=== PATIENT | female | born 1930 | race Asian ===

== ENCOUNTER 2017-01-22 13:18 | Inpatient (IN) | payer MEDICARE ==
[~2017-01-22] VITALS: Ht 149.9 cm; Wt 49.2 kg
--- NOTE | 2017-01-22 13:23 | ERPDOC ---
Departure Disposition Decision Date: January 22, 2017 Disposition Decision Time: 14:59 (ILSA MAXWELL APRN) Disposition: 66 TO [facility] Impression Impression (ILSA MAXWELL APRN) Impression: Primary Impression: Suicidal ideations Condition: Stable Seen By: Mid-level only (ILSA MAXWELL APRN) Problems/Meds/Labs Reviewed?: Yes Medications reviewed and manag: Yes (ILSA MAXWELL APRN) Follow up care ordered?: Yes Mental Status: Alert, Occasionally Confused, Confused (ILSA MAXWELL APRN) HPI - Abdominal Pain General Stated Complaint: GENERATIONS Time Seen by Provider: 13:20 Source: patient, old records, other (staff member from nursing facility ) History/Exam Limitations: clinical condition, dementia (ILSA MAXWELL APRN) Time Seen by Provider: 13:24 (GRAYSON SARAH MD) HPI - Abdominal Pain Initial Comments Patient presents from detention in [place] accompanied by staff. Apparently patient was admitted to the facility yesterday after being kicked out of of a facility in [facility] secondary to behavior issues. The patient today apparently made a stabbing motions with her hands which was perceived by the staff as suicidal ideations. Patient also apparently threatened to jump out of the car en route to [facility]. Upon exam, patient is confused to place and time and not cooperative with questions. She denies pain , specifically denies chest pain or SOA. Staff reports that patient is a flight risk, threatening to leave the facility and has made attempts to do that since arrival to the facility yesterday. Occurred At: other (nursing facility ) Duration: 12-24 hrs Associated Symptoms: denies symptoms (ILSA MAXWELL APRN) Allergies: Coded Allergies: Penicillins (Verified Allergy, Unknown, 01/22/17) Sulfa (Sulfonamide Antibiotics) (Verified Allergy, Unknown, 01/22/17) doxycycline (Verified Allergy, Unknown, 01/22/17) iodine (Verified Allergy, Unknown, 01/22/17) Past History Social History Smoking Status: Smoker,current status unk Housing: detention (ILSA MAXWELL APRN) Review of Systems Unable to Obtain ROS Due to: clinical condition, dementia Comments ROS limited due to patients dementia/uncooperativeness (ILSA MAXWELL APRN) Physical Exam General General Nourishment: well nourished, well developed, appears stated age, no acute distress, adult (ILSA MAXWELL APRN) Vitals and Pain First Documented Vital Signs Date Time Temp Pulse Resp B/P Pulse Ox O2 Delivery O2 Flow Rate FiO2 01/22/17 13:18 98.4 75 19 158/65 97 Nasal Cannula 2.00 (GRAYSON SARAH MD) Vitals and Pain Weight: Kilograms: Height (feet): Height (inches): Triage Pain Scale: (ILSA MAXWELL APRN) Normal Exams: Head: Normocephalic w/o trauma Eyes: Pupils are PERRLA w/ EOMI, No scleral icterus, irritation, or foreign bodies noted ENMT: No facial trauma, nasal exudates, pharyngeal erythema, or exudates are noted Dental: No fractured, loose, or missing teeth noted Neck: Full range of motion, without adenopathy, JVD, bruits or thyromegaly CV: Regular rate and rhythm, without murmur or gallop, Pulses 2+ all extremities, capillary refill, <2 seconds all ext., no pedal edema noted Abdomen: Bowel sounds positive, soft, non-tender, non-distended, no hepatosplenomegaly, masses or bruits noted Lymphatic: No lymphadenopathy, or lymphedema noted Musculoskeletal: No tenderness, or deformity noted, good range of motion, all extremities Integumentary: No rashes, hives, or bruising noted, hair and nails, without abnormality Neurologic: Patient is alert, cranial nerves, motor/sensory/cerebellar, exams w /o gross deficits (ILSA MAXWELL APRN) Neurologic (brief) Neurological Brief: FOUND: CN w/o gross def to obs (ILSA MAXWELL APRN) Psychiatric (brief) Psychiatric Brief: FOUND: alert, other, NOT FOUND: normal affect, oriented ( ILSA MAXWELL APRN) Differential Diagnoses Considering: Other (dementia, electrolyte imbalance, fever, sepsis, pneumonia, depression, ) (ILSA MAXWELL APRN) Progress Results/Orders Orders Procedure Category Date Status Time Trolamine Salicylate PHA 01/25/17 In Process (Aspercreme) 09:45 (GRAYSON SARAH MD) Progress Progress CT scan is unremarkable for acute change; no evidence of acute infection or sepsis which would explain patients behaviors; Patient is cleared for admission to [facility]. (ILSA MAXWELL APRN) EKG EKG : Rate: 60-100 Rhythm: sinus [place]: normal QRS: normal Intervals: normal ST/T: normal Interpreted by: signing physician EKG Comments minimal ST depressjion 0.05 mV (ILSA MAXWELL APRN) EKG : Rate: 60-100 Rhythm: sinus [place]: normal QRS: normal Intervals: normal ST/T: non-specific changes Interpreted by: signing physician (GRAYSON SARAH MD) ILSA MAXWELL APRN January 22, 2017 13:23 GRAYSON SARAH MD January 25, 2017 20:58 Hemoglobin 11.6GM/DL Hematocrit 36.8% Mean Corpuscular Volume 98.7UM3 Mean Corpuscular Hemoglobin 31.1UUG Mean Corpuscular Hemoglobin Concent 31.5GM/DL RDW Standard Deviation 41.2FL Platelet Count 185T/MM3 Mean Platelet Volume 9.8UM3 Immature Granulocyte % (Auto) 0.1% Neutrophils (%) (Auto) 66.4% Lymphocytes (%) (Auto) 22.6% Monocytes (%) (Auto) 5.7% Eosinophils (%) (Auto) 4.7% Basophils (%) (Auto) 0.5% Absolute Immature Granulocyte (auto 0.01T/MM3 Absolute Neutrophils (auto) 5.9T/MM3 Absolute Lymphocytes (auto) 2.0T/MM3 Absolute Monocytes (auto) 0.5T/MM3 Absolute Eosinophils (auto) 0.4T/MM3 Absolute Basophils (auto) 0.0T/MM3 Turbidity < 20 Sodium Level 146MEQ/L Potassium Level 3.9MEQ/L Chloride Level 102MEQ/L Carbon Dioxide Level 33MEQ/L Anion Gap 11MEQ/L Blood Urea Nitrogen 22.0MG/DL Creatinine 0.9MG/DL Glomerular Filtration Rate Calc 59 BUN/Creatinine Ratio 24RATIO Glucose Level 139MG/DL Calculated Osmolality 286MOSM/KG Calcium Level 8.7MG/DL Icterus Index < 2 Thyroid Stimulating Hormone (TSH) 3.30MIU/L Chemistry Specimen Hemolysis < 15 Salicylates Level < 1.0MG/DL Acetaminophen Level < 10UG/ML Alcohol, Quantitative <10MG/DL Urine Collection Type Voided-not cc-midstr Urine Color Yellow Urine Turbidity Clear Urine pH 5.5 Urine Specific [place] 1.015 Urine Protein Negative Urine Glucose (UA) Negative Urine Ketones Negative Urine Blood Negative Urine Nitrite Negative Urine Bilirubin Negative Urine Urobilinogen 0.2EU/DL Urine Leukocyte Esterase 2+ Urine RBC None seen/HPF Urine WBC 5-10/HPF Urine Squamous Epithelial Cells 10-20 Urine Bacteria Trace Urine Culture Indicated Cult not indicated Urine Opiates Screen NegativeNG/ML Urine Oxycodone Screen NegativeNG/ML Urine Methadone Screen NegativeNG/ML Urine Propoxyphene Screen NegativeNG/ML Urine Barbiturates Screen NegativeNG/ML Urine Tricyclic Antidepressants NegativeNG/ML Urine Phencyclidine Screen NegativeNG/ML Urine Amphetamines Screen NegativeNG/ML Urine Methamphetamines Screen NegativeNG/ML Urine Benzodiazepines Screen NegativeNG/ML Urine Cocaine Screen NegativeNG/ML Urine Cannabinoids Screen NegativeNG/ML Lab Scanned Report REFERENCE [id number] Progress Progress CT scan is unremarkable for acute change; no evidence of acute infection or sepsis which would explain patients behaviors; Patient is cleared for admission to [facility]. EKG EKG : Rate: 60-100 Rhythm: sinus [place]: normal QRS: normal Intervals: normal ST/T: normal Interpreted by: signing physician EKG Comments minimal ST depressjion 0.05 ILSA Bautista APRN January 22, 2017 13:23
[2017-01-22] MEDS ORDERED: VITAMIN D PO (13:45)
[2017-01-22] MEDS ORDERED: DONE10TA PO (13:45)
[2017-01-22] MEDS ORDERED: POLY17PO6 PO (13:45)
[2017-01-22] MEDS ORDERED: RALO60TA PO (13:45)
[2017-01-22] MEDS ORDERED: SENN-6 PO (13:45)
[2017-01-22] MEDS ORDERED: FLUT1DIS3 ORAL INH (13:45)
[2017-01-22] MEDS ORDERED: LEVO50TA4 PO (13:45)
[2017-01-22] MEDS ORDERED: SERT25TA PO (13:45)
--- NOTE | 2017-01-22 13:56 | NUR ---
LAB LAB AT BEDSIDE FOR BLOOD DRAW
--- NOTE | 2017-01-22 14:02 | NUR ---
ACTIVITY PATIENT AMBULATORY TO RESTROOM, TOLERATES ACTIVITY WELL.
[2017-01-22 14:15] LABS: BASOPHILS % (AUTO) 0.5 % (0-2); EOSINOPHILS # (AUTO) 0.4 T/MM3 (0-0.5); EOSINOPHILS % (AUTO) 4.7 % (0-4); HCT - HEMATOCRIT 36.8 % (36-46); HGB - HEMOGLOBIN 11.6 GM/DL (12-16); IMMATURE GRANULOCYTE # (AUTO) 0.01 T/MM3 (0.00-0.03); IMMATURE GRANULOCYTE % (AUTO) 0.1 % (0.0-0.5); LYMPHOCYTES % (AUTO) 22.6 % (23-45); MEAN CORPUSCULAR HGB 31.1 UUG (26-34); MEAN CORPUSCULAR HGB CONC(MCHC 31.5 GM/DL (31-37); MEAN CORPUSCULAR VOLUME 98.7 UM3 (80-100); MEAN PLATELET VOLUME 9.8 UM3 (9.4-12.4); MONOCYTES # (AUTO) 0.5 T/MM3 (0-0.8); MONOCYTES % (AUTO) 5.7 % (0-9.0); NEUTROPHILS #(AUTO)-ABSOLUTE 5.9 T/MM3 (1.8-7.7); NEUTROPHILS % (AUTO) 66.4 % (33-66); RED BLOOD COUNT 3.73 M/MM3 (4.00-5.20); WBC - WHITE BLOOD COUNT 8.8 T/MM3 (4.5-11.0)
[2017-01-22 14:17] LABS: BLOOD, URINE NEGATIVE (NEGATIVE); COLOR,URINE YELLOW (YELLOW); LEUKOCYTE ESTERASE ,URINE 2+ (NEGATIVE); NITRITE,URINE NEGATIVE (NEGATIVE); UROBILINOGEN,URINE 0.2 EU/DL (NORMAL)
--- NOTE | 2017-01-22 14:18 | NUR ---
XRAY PATIENT TO RADIOLOGY PER CART, STABLE.
[2017-01-22 14:24] LABS: ANION GAP 11 MEQ/L (5-15); BUN/CREATININE RATIO 24 RATIO (6-26); CALCIUM 8.7 MG/DL (8.4-10.2); CHLORIDE 102 MEQ/L (98-107); CO2 - CARBON DIOXIDE 33 MEQ/L (22-30); CREATININE 0.9 MG/DL (0.7-1.2); GLOMERULAR FILTRATION RATE 59; GLUCOSE 139 MG/DL (65-110); POTASSIUM 3.9 MEQ/L (3.6-5); SODIUM 146 MEQ/L (134-144)
[2017-01-22 14:25] LABS: AMPHETAMINE SCREEN,URINE NEGATIVE; BARBITURATE SCREEN,URINE NEGATIVE; BENZODIAZEPINES SCREEN,URINE NEGATIVE; CANNABINOID SCREEN,URINE NEGATIVE; COCAINE SCREEN,URINE NEGATIVE; METHADONE SCREEN, URINE NEGATIVE; METHAMPHETAMINE SCREEN, URINE NEGATIVE; OPIATE SCREEN,URINE NEGATIVE; PHENCYCLIDINE SCREEN,URINE NEGATIVE; TRICYCLIC ANTIDEPRESSANT,URINE NEGATIVE
[2017-01-22 14:27] LABS: ACETAMINOPHEN < 10 UG/ML (10-30); ETHANOL <10 MG/DL (<10); SALICYLATE < 1.0 MG/DL (2-20)
[2017-01-22 14:28] LABS: BACTERIA,URINE TRACE (NEGATIVE); RBC,URINE NONE SEEN /HPF (0-3)
--- NOTE | 2017-01-22 14:28 | NUR ---
RETURN PATIENT BACK FROM RADIOLOGY PER CART.
--- NOTE | 2017-01-22 14:31 | DI ---
Indication: ITS.REASON: behavior change; PROCEDURE: CT HEAD W/O CONTRAST: Encounter: Initial Comparison: None Technique: Axial CT images through the head were performed without contrast. Iterative Reconstruction dose reducing technique was utilized. FINDINGS: Moderate generalized atrophy. The ventricles are dilated but proportional to atrophy. There are numerous areas of low attenuation in the white matter which most likely represent changes from chronic microvascular ischemia. The brainstem, cerebellum, and cerebral hemispheres otherwise have a normal morphology and CT attenuation. There is no evidence of midline displacement. No hemorrhage, signs of acute territorial stroke, mass effect, mass lesions, or edema is evident. The visualized portions of the skull base, midface, and calvarium demonstrate no abnormality. The paranasal sinuses are well aerated and free of significant disease. The tympanic and mastoid cavities appear normal. IMPRESSION: No acute intracranial abnormality or hemorrhage. .
--- NOTE | 2017-01-22 14:43 | DI ---
Indication: ITS.REASON: wheezing ; states recent pneumonia PROCEDURE: CHEST 1 VIEW: Encounter: Initial Comparison: None Findings: Increased markings in both lung bases, left greater than right. Senescent changes and possible COPD. No pneumothorax or definite pleural effusion. Areas of bronchiectasis and bronchial wall thickening in the lower lobes. Cardiac silhouette is mildly enlarged. Mediastinal contours and pulmonary vascularity appear normal. Impression: Abnormal appearance of the lower lobes could represent acute pneumonia or aspiration or be related to a chronic process such as COPD or chronic aspiration. .
--- NOTE | 2017-01-22 15:14 | NUR ---
TRANSPORT PER WC ACCOMPANIED BY [facility]
--- OUTSIDE RECORDS SUMMARY | 2017-01-22 15:22 | XMS REPORT | Referral Summary ---
Author Organization Unknown Address Unknown Phone Unavailable Care Team Providers Care Master Lay Out Specialist Name Role Phone Aragon, L Primary Care Physician [phone] Encounter VC Date(s): 12/26/14 - 01/06/[id number] [place] [address] Discharge Diagnosis: Bacteremia Discharge Disposition: Home or Self Care Attending Physician: Chava Cooley MD Admitting Physician: Oneil Giordano MD Vital Signs Most recent to 1 oldest [Reference Range]: Temperature Oral 37.2 degC [35.8-37.3 degC] (01/06/15 8:00 AM) Temperature Temporal 36.3 degC Artery [36.3-37.8 (01/01/15 12:00 PM) degC] Peripheral Pulse 78 bpm Rate [60-100 bpm] (01/06/15 8:00 AM) Heart Rate Monitored 82 bpm [60-100 bpm] (01/06/15 9:00 AM) Respiratory Rate 18 br/min [14-20 br/min] (01/06/15 8:16 AM) Blood Pressure 116/68 mmHg [90-140/60-90 mmHg] (01/06/15 8:00 AM) Most recent to 1 oldest [Reference Range]: SpO2 95 % (01/06/15 8:11 AM) Problem List Condition Effective Dates Status Health Status Informant Hypothyroidism Active patient (acquired)(Confirmed ) Acute Active pain(Confirmed) At risk for Resolved falls(Confirmed)1 At risk for Resolved infection(Confirmed) 2 At risk for Resolved injury(Confirmed)3 At risk of pressure Active sore(Confirmed) Constipation(Confirm Resolved patient ed) Methicillin Active resistant Staphylococcus aureus(Confirmed)4 Pneumonia(Confirmed) Active patient Emphysema Active patient lung(Confirmed) Tissue perfusion Active alteration(Confirmed )5 Tobacco Active patient user(Confirmed) 1This problem was added by Discern Expert. 2Problem added automatically by system based on initiation of At Risk for Infection in Nutrition Plan of Care 3Problem added automatically by system based on initiation of Risk for Injury Plan of Care 4Blood from NOT FOUND collected 12/30/14 7:45:00 CDT 5Problem added automatically by system based on initiation of Tissue Perfusion Cerebral Plan of Care Allergies, Adverse Reactions, Alerts Substance Reaction Severity Status doxycycline Adverse Reaction Active iodine Eczema (rash) Active penicillin Eczema (rash) Active Medications Advair Diskus 250 mcg-50 mcg inhalation powder 1 puffs, Inhalation, BID, 0 Refill(s) Start Date: 12/26/14 Status: Ordered levothyroxine 75 mcg, Oral, Daily, 0 Refill(s) Start Date: 12/26/14 Status: Ordered raloxifene 60 mg, Oral, Daily, 0 Refill(s) Start Date: 12/26/14 Status: Ordered Senokot S 50 mg-8.6 mg oral tablet 1 tabs, Oral, Daily, Constipation, # 30 tabs, 0 Refill(s), Pharmacy: [facility] #[id number] Start Date: 01/06/15 Status: Ordered simethicone 80 mg oral tablet, chewable 1 tabs, Oral, q6hr (scheduled), Abdominal Cramping, # 36 tabs, 0 Refill(s), Pharmacy: [facility] #[id number], 1 tabs Oral q6hr (scheduled),PRN:Abdominal Cramping Start Date: 01/06/15 Status: Ordered Results Blood Gases Most recent to 1 oldest [Reference Range]: pH [7.35-7.45] 7.41 (12/26/14 8:00 PM) pCO2 Art [35-45 45 mmHg mmHg] (12/26/14 8:00 PM) Arterial PO2 [80-100 60 mmHg mmHg] *LOW* (12/26/14 8:00 PM) Bicarbonate [22-26 28 mEq/L mEq/L] *HI* (12/26/14 8:00 PM) Base Excess Art 3 [0-2] *HI* (12/26/14 8:00 PM) SaO2 Art [90.0-97.0 91.1 % %] (12/26/14 8:00 PM) LPM Art 6.0 L/min (12/26/14 8:00 PM) O2 Panel Home Tank (12/26/14 8:00 PM) Vent Mode Nasal Cannula (12/26/14 8:00 PM) Spec Site Radial-L (12/26/14 8:00 PM) Hematology Most recent to 1 oldest [Reference Range]: WBC [4.8-10.8 K/uL] 7.7 K/uL (01/05/15 5:25 AM) RBC [4.00-5.20 M/uL] 3.38 M/uL *LOW* (01/05/15 5:25 AM) Hgb [12.0-16.0 9.7 gm/dL gm/dL] *LOW* (01/05/15:25 AM) Hct [37.0-47.0 %] 32.0 % *LOW* (01/05/15:25 AM) MCV [82.0-99.0 fL] 94.7 fL (01/05/15 5:25 AM) MCH [27.0-32.0 pg] 28.7 pg (01/05/15 5:25 AM) MCHC [32.0-36.0 30.3 gm/dL gm/dL] *LOW* (01/05/15 5:25 AM) RDW [11.5-14.5 %] 11.9 % (01/05/15 5:25 AM) Platelet [150-400 261 K/uL K/uL] (01/05/15 5:25 AM) MPV [9.4-12.4 fL] 9.2 fL *LOW* (01/05/15 5:25 AM) Immature 0.5 % Granulocytes (01/05/15 5:25 AM) [0.0-1.0 %] Neutrophils [51-75 69 % %] (01/05/15 5:25 AM) Band Man [0-8 %] 3 % (01/02/15 6:51 AM) Lymphocytes [20-46 21 % %] (01/05/15 5:25 AM) Abn Lymph Man 3 % (01/01/15 5:24 AM) Monocytes [4-11 %] 6 % (01/05/15 5:25 AM) Eosinophils [0-4 %] 3 % (01/05/15 5:25 AM) Basophils [0-2 %] 1 % (01/05/15 5:25 AM) Neutro Absolute 5.33 THOUS [1.90-7.00 THOUS] (01/05/15 5:25 AM) Lymph Absolute 1.64 THOUS [0.80-3.30 THOUS] (01/05/15 5:25 AM) [place] Absolute 0.47 THOUS [0.30-1.00 THOUS] (01/05/15 5:25 AM) Eos Absolute 0.20 THOUS [0.00-0.50 THOUS] (01/05/15 5:25 AM) Baso Absolute 0.04 THOUS [0.00-0.20 THOUS] (01/05/15 5:25 AM) Toxic Gran Occasional *ABN* (01/02/15 6:51 AM) Vacuoles Present *ABN* (12/27/14 4:59 AM) Nucleated RBC 0.0 /100 WBC Automated [0 /100 (01/03/15 4:18 AM) WBC] Differential Manual *ABN* (01/02/15 6:51 AM) Sed Rate [0-23 54 mm/hr mm/hr] *HI* (01/05/15 5:25 AM) Smear Review By See pathology Pathologist (12/27/14 4:59 AM) Chemistry Most recent to 1 oldest [Reference Range]: Sodium Lvl [136-144 138 mEq/L mEq/L] (01/05/15 5:25 AM) Potassium Lvl 3.9 mEq/L [3.6-5.1 mEq/L] (01/05/15 5:25 AM) Chloride [99-109 103 mEq/L mEq/L] (01/05/15 5:25 AM) CO2 [22-32 mEq/L] 31 mEq/L (01/05/15 5:25 AM) AGAP [3-20] 4 (01/05/15 5:25 AM) BUN [4-20 mg/dL] 8 mg/dL (01/05/15 5:25 AM) Glucose Lvl [70-100 101 mg/dL mg/dL] *HI* (01/05/15 5:25 AM) Creatinine Lvl 0.75 mg/dL [0.44-1.03 mg/dL] (01/05/15 5:25 AM) eGFR [>60] >60 3 (01/05/15 5:25 AM) Calcium Lvl 7.7 mg/dL [8.6-10.0 mg/dL] *LOW* (01/05/15 5:25 AM) Albumin Lvl [3.5-4.8 2.4 gm/dL gm/dL] *LOW* (01/05/15 5:25 AM) Total Protein 6.6 gm/dL [6.1-7.9 gm/dL] (12/27/14 4:59 AM) Globulin [1.9-4.3 4.1 gm/dL gm/dL] (12/27/14 4:59 AM) ALT [14-54 unit/L] 16 unit/L (12/27/14 4:59 AM) AST [15-41 unit/L] 19 unit/L (12/27/14 4:59 AM) Alk Phos [26-104 81 unit/L unit/L] (12/27/14 4:59 AM) Bili Total [0.2-1.2 0.7 mg/dL 2 mg/dL] (12/27/14 4:59 AM) Magnesium Lvl 2.1 mg/dL [1.8-2.5 mg/dL] (12/31/14 7:03 AM) Phosphorus [2.4-4.7 3.1 mg/dL 1 mg/dL] (01/05/15 5:25 AM) Calcium Ionized 1.05 mmol/L [1.19-1.41 mmol/L] *LOW* (12/27/14 4:59 AM) Lipase Lvl [8-48 19 unit/L unit/L] (12/26/14 4:36 PM) Lactic Acid Lvl 1.5 mEq/L [0.5-2.2 mEq/L] (12/26/14 5:40 PM) T4 Free [0.6-1.1 1.0 ng/dL ng/dL] (12/26/14 4:36 PM) TSH [0.35-5.50] 2.39 (12/26/14 4:36 PM) 1Result Comment: High dosages of liposomal Amphotericin B (AmBisome) therapy or other drug preparations that use a liposomal envelope to facilitate drug delivery may cause falsely elevated results for phosphorus. 2Result Comment: Naproxen, specifically the metabolite O-desmethylnaproxen, may cause spurious elevation in Total Bilirubin levels. 3Result Comment: Multiply eGFR results by 1.21 for race. Therapeutic Drug Monitoring Most recent to 1 oldest [Reference Range]: Vancomycin Tr 6.4 mcg/mL 4 [10.0-20.0 mcg/mL] *LOW* (01/03/15 4:18 AM) 4Result Comment: Trough vancomycin concentrations of 15-20 mcg/mL are recommended for complicated infections such as bacteremia, osteomyelitis, endocarditis, meningitis, and hospital acquired pneumonia. Urinalysis Most recent to 1 oldest [Reference Range]: UA Color Lt Yellow (12/30/14 6:18 PM) UA Appear Clear (12/30/14 6:18 PM) UA pH [5.0-8.0] 7.0 (12/30/14 6:18 PM) UA Leuk Est Negative [Negative] (12/30/14 6:18 PM) UA Nitrite Negative [Negative] (12/30/14 6:18 PM) UA Protein Negative [Negative] (12/30/14 6:18 PM) UA Glucose Negative [Negative] (12/30/14 6:18 PM) UA Ketones Negative [Negative] (12/30/14 6:18 PM) UA Urobilinogen Negative [<1.0] (12/30/14 6:18 PM) UA Bili [Negative] Negative (12/30/14 6:18 PM) UA Blood [Negative] Negative (12/30/14 6:18 PM) UA Spec Grav 1.004 [1.003-1.030] (12/30/14 6:18 PM) Type Clean Catch (12/30/14 6:18 PM) Microbiology Reports PROCEDURE: Blood Culture STATUS: Order in Progress BODY SITE: SOURCE: Blood COLLECTED DATE/TIME: 01/02/15 7:47 PM PROCEDURE: Blood Culture STATUS: Order in Progress BODY SITE: SOURCE: Blood COLLECTED DATE/TIME: 01/02/15 4:11 PM PROCEDURE: Urine Culture STATUS: Auth (Verified) BODY SITE: SOURCE: Urine COLLECTED DATE/TIME: 12/30/14 6:18 PM PROCEDURE: Blood Culture1 STATUS: Auth (Verified) BODY SITE: SOURCE: Blood COLLECTED DATE/TIME: 12/30/14 8:26 AM ORGANISM:Methicillin-Resistant Staphylococcus aureus PROCEDURE: Blood Culture2 STATUS: Auth (Verified) BODY SITE: SOURCE: Blood COLLECTED DATE/TIME: 12/30/14 8:12 AM ORGANISM:Corynebacterium species PROCEDURE: Blood Culture STATUS: Auth (Verified) BODY SITE: SOURCE: Blood COLLECTED DATE/TIME: 12/26/14 4:36 PM PROCEDURE: Blood Culture STATUS: Auth (Verified) BODY SITE: SOURCE: Blood COLLECTED DATE/TIME: 12/26/14 4:29 PM INTERPRETIVE DATA 1Critical value called to and read back by SEB at [facility] at 12/31/2014 02:50 2Critical value called to and read back by Debbie Russell 01/01/2015 08:16 Immunizations No data available for this section Procedures Procedure Date Related Diagnosis Body Site Arterial puncture, withdrawal of blood for 12/26/14 diagnosis Hysterectomy Social History Social History Type Response Smoking Status Former smoker; Type: Cigarettes; Tobacco use per day: 1 Pack ; Number of years: 50; Total pack years: 50 Assessment and Plan No data available for this section
--- OUTSIDE RECORDS SUMMARY | 2017-01-22 15:22 | XMS REPORT | Continuity of Care Document ---
Author Author [facility] Organization [facility] Address Unknown Phone Unavailable Allergies Active Description Code Type Severity Reaction Onset Reported/Identified Relationship to Patient Clinical Status Yes IV Contrast Drug Allergy Eczema (rash) 08/27/2009 Yes Penicillins Drug Allergy Eczema (rash) 08/27/2009 Yes Doxycycline Drug Allergy Adverse Reaction 09/22/2010 Yes No Known Food Allergies Food Allergy 10/13/2012 Medications Problems Date Dx Coded Attending Type Code Diagnosis Diagnosed By 10/12/2012 Zak George III, MD Final 305.1 TOBACCO USE DISORDER 10/12/2012 Zak George III, MD Final 401.9 HYPERTENSION NOS 10/12/2012 Zak George III, MD Final 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 10/12/2012 Zak George III, MD Final 562.10 COLON DIVERTICULOSIS 10/12/2012 Zak George III, MD Final 786.2 COUGH 10/12/2012 Zak George III, MD 787.02 NAUSEA ALONE 10/12/2012 Zak George III, MD Final 787.03 VOMITING ALONE 10/12/2012 Zak George III, MD Final 789.09 ABDOMINAL PAIN-SITE NEC 10/13/2012 Lukas Schneider MD Final 079.99 VIRAL INFECTION NOS 10/13/2012 Lukas Schneider MD Final 244.9 HYPOTHYROIDISM NOS 10/13/2012 Lukas Schneider MD Final 305.1 TOBACCO USE DISORDER 10/13/2012 Lukas Schneider MD Final 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 Visit Date/Time Discharge Status Pt. Type Provider Facility Loc./Unit Complaint [id number] 10/13/2012 14:54:00 2012 17:15:00 DIS Emergency Lukas Schneider MD [facility] [id number] 10/12/2012 11:12:00 2012 14:25:00 DIS Emergency Ariel HILL MD, Zak [facility]
--- OUTSIDE RECORDS SUMMARY | 2017-01-22 15:22 | XMS REPORT | Referral Summary ---
Author Author [facility] Organization [facility] Address Unknown Phone Unavailable Care Team Providers Care Career Guidance Counselor Name Role Phone Aragon, L Primary Care Physician [phone] Encounter VC Date(s): 03/19/16 - 03/20/16 [facility] [address] [place], [place] [address] Discharge Disposition: -Home or Self Care Attending Physician: Harjinder Trammell MD Admitting Physician: Harjinder Trammell MD Vital Signs Most recent to 1 oldest [Reference Range]: Temperature Oral 36.6 degC [35.8-37.3 degC] (03/20/16 3:46 PM) Peripheral Pulse 77 bpm Rate [60-100 bpm] (03/20/16 3:46 PM) Heart Rate Monitored 88 bpm [60-100 bpm] (03/20/16 9:12 AM) Respiratory Rate 18 br/min [14-20 br/min] (03/20/16 3:46 PM) Blood Pressure 114/64 mmHg [90-140/60-90 mmHg] (03/20/16 3:46 PM) Mean Arterial 86 mmHg Pressure, Cuff (03/19/16 8:12 PM) SpO2 93 % (03/20/16 3:46 PM) Problem List Condition Effective Dates Status Health Status Informant Hypothyroidism Active patient (acquired)(Confirmed ) Acute Active pain(Confirmed) At risk for Resolved falls(Confirmed)1 At risk for Resolved infection(Confirmed) 2 At risk for Resolved injury(Confirmed)3 At risk of pressure Active sore(Confirmed) Bowel Active dysfunction(Confirme d)4 Constipation(Confirm Resolved patient ed) Ineffective coping Active (individual)(Confirm ed)5 Methicillin Resolved resistant Staphylococcus aureus(Confirmed)6 Pneumonia(Confirmed) Active patient Emphysema Active patient lung(Confirmed) Tissue perfusion Active alteration(Confirmed )7 Tobacco Active patient user(Confirmed) 1This problem was added by Discern Expert. 2Problem added automatically by system based on initiation of At Risk for Infection in Nutrition Plan of Care 3Problem added automatically by system based on initiation of Risk for Injury Plan of Care 4Problem added automatically by system based on initiation of Bowel Dysfunction Plan of Care 5Problem added automatically by system based on initiation of Ineffective Coping Plan of Care 6Blood from NOT FOUND collected 12/30/14 7:45:00 CDT 7Problem added automatically by system based on initiation of Tissue Perfusion Cerebral Plan of Care Allergies, Adverse Reactions, Alerts Substance Reaction Severity Status doxycycline Adverse Reaction Active iodine Eczema (rash) Active penicillin Eczema (rash) Active Medications acetaminophen 650 mg, Oral, q4hr, pain/fever, 0 Refill(s) Start Date: 03/19/16 Status: Ordered Aricept 10 mg, Oral, Bedtime (once a day), 0 Refill(s) Start Date: 03/19/16 Status: Ordered Cepastat 1 lozenges, Oral, q2hr, Sore Throat, 0 Refill(s) Start Date: 07/18/15 Status: Ordered cetirizine 10 mg, Oral, Daily, as needed for allergy symptoms, 0 Refill(s) Start Date: 03/19/16 Status: Ordered Communication See Instructions, list obtained from [facility], 0 Refill(s) Start Date: 03/19/16 Status: Ordered diphenhydrAMINE 25 mg, Oral, q4hr, as needed for allergy symptoms, 0 Refill(s) Start Date: 03/19/16 Status: Ordered Dulcolax Laxative 10 mg rectal suppository 10 mg 1 supp, Rectal, Daily, as needed for constipation, as needed for constipation not relieved within 24 hours after milk of magnesia given, 0 Refill (s) Start Date: 03/19/16 Status: Ordered fluticasone-salmeterol CFC free 115 mcg-21 mcg/inh inhalation aerosol 2 puffs, Inhalation, BID, 0 Refill(s) Start Date: 07/18/15 Status: Ordered ibuprofen 400 mg oral tablet 400 mg 1 tabs, Oral, BID, Pain, 0 Refill(s) Start Date: 07/18/15 Status: Ordered Imodium A-D 2 mg, Oral, q4hr, Diarrhea/Loose Stools, after each loose stool, 0 Refill(s) Start Date: 03/19/16 Status: Ordered levothyroxine 75 mcg (0.075 mg) oral tablet 75 mcg 1 tabs, Oral, Daily, 0 Refill(s) Start Date: 07/18/15 Status: Ordered Metamucil 3.4 g 1 packets, Oral, BID, 0 Refill(s) Start Date: 03/20/16 Status: Ordered Milk of Magnesia 30 mL, Oral, Daily, as needed for constipation, 0 Refill(s) Start Date: 03/19/16 Status: Ordered MiraLax 17 g 1 packets, Oral, Mon/Thurs, Constipation, 0 Refill(s) Start Date: 07/18/15 Status: Ordered Mylanta Maximum Strength oral suspension 30 mL, Oral, q4hr, upset stomach, 0 Refill(s) Start Date: 03/19/16 Status: Ordered promethazine 6.25 mg/5 mL oral syrup 6.25 mg 5 mL, Oral, q4hr, Cough, 0 Refill(s) Start Date: 03/19/16 Status: Ordered raloxifene 60 mg oral tablet 60 mg 1 tabs, Oral, Daily, 0 Refill(s) Start Date: 07/18/15 Status: Ordered Sennalax-S 1 tabs, Oral, Every other day, Constipation, 0 Refill(s) Start Date: 03/19/16 Status: Ordered sertraline 25 mg, Oral, Daily, 0 Refill(s) Start Date: 03/19/16 Status: Ordered triamcinolone 0.1% topical cream 1 ace, Topical, TID, Pruritus/Itching, 0 Refill(s) Start Date: 07/18/15 Status: Ordered Results Hematology Most recent to 1 oldest [Reference Range]: WBC [4.8-10.8 6.2 10*3/uL 10*3/uL] (03/20/16 5:03 AM) RBC [4.00-5.20] 3.88 *LOW* (03/20/16 5:03 AM) Hgb [12.0-16.0 11.5 gm/dL gm/dL] *LOW* (03/20/16 5:03 AM) Hct [37.0-47.0 %] 36.3 % *LOW* (03/20/16 5:03 AM) MCV [82.0-99.0 fL] 93.6 fL (03/20/16 5:03 AM) MCH [27.0-32.0 pg] 29.6 pg (03/20/16 5:03 AM) MCHC [32.0-36.0 31.7 gm/dL gm/dL] *LOW* (03/20/16 5:03 AM) RDW [11.5-14.5 %] 12.3 % (03/20/16 5:03 AM) Platelet [150-400 192 10*3/uL 10*3/uL] (03/20/16 5:03 AM) MPV [9.4-12.4 fL] 10.3 fL (03/20/16 5:03 AM) Immature 0.2 % Granulocytes (03/20/16 5:03 AM) [0.0-1.0 %] Neutrophils [51-75 90 % %] *HI* (03/20/16 5:03 AM) Lymphocytes [20-46 9 % %] *LOW* (03/20/16 5:03 AM) Monocytes [4-11 %] 1 % *LOW* (03/20/16 5:03 AM) Eosinophils [0-4 %] 0 % (03/20/16 5:03 AM) Basophils [0-2 %] 0 % (03/20/16 5:03 AM) Neutro Absolute 5.56 10*3 [1.90-7.00 10*3] (03/20/16 5:03 AM) Lymph Absolute 0.58 10*3 [0.80-3.30 10*3] *LOW* (03/20/16 5:03 AM) [place] Absolute 0.03 10*3 [0.30-1.00 10*3] *LOW* (03/20/16 5:03 AM) Eos Absolute 0.00 10*3 [0.00-0.50 10*3] (03/20/16 5:03 AM) Baso Absolute 0.01 10*3 [0.00-0.20 10*3] (03/20/16 5:03 AM) Nucleated RBC 0.0 /100 WBC Automated [0 /100 (03/20/16 5:03 AM) WBC] Chemistry Most recent to 1 oldest [Reference Range]: Sodium Lvl [136-144 140 mEq/L mEq/L] (03/20/16 5:03 AM) Potassium Lvl 4.2 mEq/L [3.6-5.1 mEq/L] (03/20/16 5:03 AM) Chloride [99-109 110 mEq/L mEq/L] *HI* (03/20/16 5:03 AM) CO2 [22-32 mEq/L] 23 mEq/L (03/20/16 5:03 AM) AGAP [3-20] 7 (03/20/16 5:03 AM) BUN [4-20 mg/dL] 7 mg/dL (03/20/16 5:03 AM) Glucose Lvl [70-100 166 mg/dL mg/dL] *HI* (03/20/16 5:03 AM) Creatinine Lvl 0.78 mg/dL [0.44-1.03 mg/dL] (03/20/16 5:03 AM) eGFR [>60] >60 1 (03/20/16 5:03 AM) Calcium Lvl 7.7 mg/dL [8.6-10.0 mg/dL] *LOW* (03/20/16 5:03 AM) Albumin Lvl [3.5-4.8 4.0 gm/dL gm/dL] (03/19/16 7:55 PM) Total Protein 7.2 gm/dL [6.1-7.9 gm/dL] (03/19/16 7:55 PM) Globulin [1.9-4.3 3.2 gm/dL gm/dL] (03/19/16 7:55 PM) ALT [14-54 U/L] 11 U/L *LOW* (03/19/16 7:55 PM) AST [15-41 U/L] 16 U/L (03/19/16 7:55 PM) Alk Phos [26-104 56 U/L U/L] (03/19/16 7:55 PM) Bili Total [0.2-1.2 0.6 mg/dL 2 mg/dL] (03/19/16 7:55 PM) Troponin [<0.06 <0.05 ng/mL ng/mL] (03/19/16 7:55 PM) Lipase Lvl [8-48 38 U/L U/L] (03/19/16 7:55 PM) Sodium Venous 141 mEq/L [136-144 mEq/L] (03/19/16 8:07 PM) Potassium Venous 4.1 mEq/L 3 [3.6-5.1 mEq/L] (03/19/16 8:07 PM) Calcium Ionized 1.07 mmol/L Venous [1.19-1.41 *LOW* mmol/L] (03/19/16 8:07 PM) Total CO2 Venous 26 mEq/L [25-29 mEq/L] (03/19/16 8:07 PM) HGB Venous NPT 12.6 gm/dL [12.0-16.0 gm/dL] (03/19/16 8:07 PM) HCT Venous 37.0 % [37.0-47.0 %] (03/19/16 8:07 PM) Glucose Venous 102 mg/dL [70-100 mg/dL] *HI* (03/19/16 8:07 PM) BUN Venous [4-20] 15 (03/19/16 8:07 PM) Creatinine Venous 0.8 mg/dL [0.4-1.0 mg/dL] (03/19/16 8:07 PM) Venous CL [99-109 103 mEq/L mEq/L] (03/19/16 8:07 PM) Anion Gap, Javier 12 [3-20] (03/19/16 8:07 PM) 1Result Comment: Multiply eGFR results by 1.21 for race. 2Result Comment: Naproxen, specifically the metabolite O-desmethylnaproxen, may cause spurious elevation in Total Bilirubin levels. 3Result Comment: This test was performed on a whole blood specimen. The presence or absence of hemolysis cannot be assessed. Hemolysis can falsely elevate potassium levels. Normals are for venous specimens only. Urinalysis Most recent to 1 oldest [Reference Range]: UA Color Straw (03/19/16 8:43 PM) UA Appear Clear (03/19/16 8:43 PM) UA pH [5.0-8.0] 8.0 (03/19/16 8:43 PM) UA Leuk Est Trace [Negative] *ABN* (03/19/16 8:43 PM) UA Nitrite Negative [Negative] (03/19/16 8:43 PM) UA Protein Negative [Negative] (03/19/16 8:43 PM) UA Glucose Negative [Negative] (03/19/16 8:43 PM) UA Ketones Negative [Negative] (03/19/16 8:43 PM) UA Urobilinogen Negative [<1.0] (03/19/16 8:43 PM) UA Bili [Negative] Negative (03/19/16 8:43 PM) UA Blood [Negative] Negative (03/19/16 8:43 PM) UA Spec Grav 1.005 [1.003-1.030] (03/19/16 8:43 PM) Type Clean Catch (03/19/16 8:43 PM) UA WBC [0-4] 2-5 (03/19/16 8:43 PM) UA RBC [0-2] 0-2 (03/19/16 8:43 PM) Epithelial Cells 0-2 (03/19/16 8:43 PM) UA Bacteria None Seen (03/19/16 8:43 PM) Immunizations No data available for this section Procedures Procedure Date Related Diagnosis Body Site Appendectomy Hysterectomy Thyroidectomy Social History Social History Type Response Smoking Status Former smoker; Type: Cigarettes; Tobacco use per day: 1 Pack ; Number of years: 50; Total pack years: 50 Assessment and Plan No data available for this section
--- OUTSIDE RECORDS SUMMARY | 2017-01-22 15:22 | XMS REPORT | Referral Summary ---
Author Author [facility] Organization [facility] Address Unknown Phone Unavailable Care Team Providers Care Patternator Name Role Phone Aragon, L Primary Care Physician [phone] Encounter VC Date(s): 07/25/16 - 07/25/16 [facility] [address] [place], [place] [address] Final: Diarrhea, unspecified Discharge Diagnosis: Abdominal pain Discharge Diagnosis: Vomiting and diarrhea Final: Generalized abdominal pain Final: Vomiting, unspecified Final: Diverticulosis of intestine, part unspecified, without perforation or abscess without bleeding Discharge Diagnosis: Diverticulosis Discharge Disposition: 01-Home or Self Care Attending Physician: Rojelio Camp MD Admitting Physician: Rojelio Camp MD Vital Signs Most recent to 1 oldest [Reference Range]: Temperature Oral 36.6 degC [35.8-37.3 degC] (07/25/16 2:17 AM) Peripheral Pulse 72 bpm Rate [60-100 bpm] (07/25/16 6:49 AM) Heart Rate Monitored 70 bpm [60-100 bpm] (07/25/16 5:50 AM) Respiratory Rate 18 br/min [14-20 br/min] (07/25/16 6:49 AM) Blood Pressure 136/68 mmHg [90-140/60-90 mmHg] (07/25/16 6:49 AM) Mean Arterial 85 mmHg Pressure, Cuff (07/25/16 5:50 AM) SpO2 96 % (07/25/16 6:49 AM) Problem List Condition Effective Dates Status [...] Eczema (rash) Active penicillin Eczema (rash) Active sulfa drugs Active Medications acetaminophen 650 mg, Oral, q4hr, [...] Ordered Communication See Instructions, list obtained from [facility], 0 Refill(s) Start Date: 03/19/16 Status: Ordered [...] 0 Refill(s) Start Date: 07/18/15 Status: Ordered Zofran ODT 4 mg oral tablet, disintegrating 4 mg 1 tabs, Oral, q8hr, as needed for nausea/vomiting, # 10 tabs, 0 Refill(s) Start Date: 07/25/16 Status: Ordered Results Hematology Most recent to 1 oldest [Reference Range]: WBC [4.8-10.8 11.8 10*3/uL 10*3/uL] *HI* (07/25/16 3:27 AM) RBC [4.00-5.20] 3.70 *LOW* (07/25/16 3:27 AM) Hgb [12.0-16.0 11.3 gm/dL gm/dL] *LOW* (07/25/16 3:27 AM) Hct [37.0-47.0 %] 35.2 % *LOW* (07/25/16 3:27 AM) MCV [82.0-99.0 fL] 95.1 fL (07/25/16 3:27 AM) MCH [27.0-32.0 pg] 30.5 pg (07/25/16 3:27 AM) MCHC [32.0-36.0 32.1 gm/dL gm/dL] (07/25/16 3:27 AM) RDW [11.5-14.5 %] 12.5 % (07/25/16 3:27 AM) Platelet [150-400 198 10*3/uL 10*3/uL] (07/25/16 3:27 AM) MPV [9.4-12.4 fL] 9.9 fL (07/25/16 3:27 AM) Immature 0.2 % Granulocytes (07/25/16 3:27 AM) [0.0-1.0 %] Neutrophils [51-75 77 % %] *HI* (07/25/16 3:27 AM) Lymphocytes [20-46 13 % %] *LOW* (07/25/16 3:27 AM) Monocytes [4-11 %] 7 % (07/25/16 3:27 AM) Eosinophils [0-4 %] 3 % (07/25/16 3:27 AM) Basophils [0-2 %] 0 % (07/25/16 3:27 AM) Neutro Absolute 9.06 10*3 [1.90-7.00 10*3] *HI* (07/25/16 3:27 AM) Lymph Absolute 1.58 10*3 [0.80-3.30 10*3] (07/25/16 3:27 AM) [place] Absolute 0.77 10*3 [0.30-1.00 10*3] (07/25/16 3:27 AM) Eos Absolute 0.30 10*3 [0.00-0.50 10*3] (07/25/16 3:27 AM) Baso Absolute 0.03 10*3 [0.00-0.20 10*3] (07/25/16 3:27 AM) Nucleated RBC 0.0 /100 WBC Automated [0 /100 (07/25/16 3:27 AM) WBC] Chemistry Most recent to 1 oldest [Reference Range]: Sodium Lvl [136-144 142 mEq/L mEq/L] (07/25/16 3:27 AM) Potassium Lvl 3.8 mEq/L [3.6-5.1 mEq/L] (07/25/16 3:27 AM) Chloride [99-109 104 mEq/L mEq/L] (07/25/16 3:27 AM) CO2 [22-32 mEq/L] 29 mEq/L (07/25/16 3:27 AM) AGAP [3-20] 9 (07/25/16 3:27 AM) BUN [4-20 mg/dL] 13 mg/dL (07/25/16 3:27 AM) Glucose Lvl [70-100 104 mg/dL mg/dL] *HI* (07/25/16 3:27 AM) Creatinine Lvl 0.78 mg/dL [0.44-1.03 mg/dL] (07/25/16 3:27 AM) eGFR [>60] >60 1 (07/25/16 3:27 AM) Calcium Lvl 8.5 mg/dL [8.6-10.0 mg/dL] *LOW* (07/25/16 3:27 AM) Albumin Lvl [3.5-4.8 3.7 gm/dL gm/dL] (07/25/16 3:27 AM) Total Protein 6.8 gm/dL [6.1-7.9 gm/dL] (07/25/16 3:27 AM) Globulin [1.9-4.3 3.1 gm/dL gm/dL] (07/25/16 3:27 AM) ALT [14-54 U/L] 12 U/L *LOW* (07/25/16 3:27 AM) AST [15-41 U/L] 20 U/L (07/25/16 3:27 AM) Alk Phos [26-104 47 U/L U/L] (07/25/16 3:27 AM) Bili Total [0.2-1.2 0.6 mg/dL 2 mg/dL] (07/25/16 3:27 AM) Lipase Lvl [8-48 31 U/L U/L] (07/25/16 3:27 AM) 1Result Comment: Multiply eGFR results by 1.21 for race. 2Result Comment: Naproxen, specifically the metabolite O-desmethylnaproxen, may cause spurious elevation in Total Bilirubin levels. Urinalysis Most recent to 1 oldest [Reference Range]: UA Color Straw (07/25/16 3:27 AM) UA Appear Clear (07/25/16 3:27 AM) UA pH [5.0-8.0] 7.0 (07/25/16 3:27 AM) UA Leuk Est Trace [Negative] *ABN* (07/25/16 3:27 AM) UA Nitrite Negative [Negative] (07/25/16 3:27 AM) UA Protein Negative [Negative] (07/25/16 3:27 AM) UA Glucose Negative [Negative] (07/25/16 3:27 AM) UA Ketones Negative [Negative] (07/25/16 3:27 AM) UA Urobilinogen Negative [<1.0] (07/25/16 3:27 AM) UA Bili [Negative] Negative (07/25/16 3:27 AM) UA Blood [Negative] Negative (07/25/16 3:27 AM) UA Spec Grav 1.010 [1.003-1.030] (07/25/16 3:27 AM) Type Clean Catch (07/25/16 3:27 AM) UA WBC [0-4] 2-5 (07/25/16 3:27 AM) UA RBC [0-2] 0-2 (07/25/16 3:27 AM) Epithelial Cells None Seen (07/25/16 3:27 AM) UA Bacteria Rare (07/25/16 3:27 AM) UA Mucous Present (07/25/16 3:27 AM) Immunizations No data available for this section Procedures Procedure Date Related Diagnosis Body Site Appendectomy Hysterectomy Thyroidectomy Social History Social History Type Response Smoking Status Former smoker; Type: Cigarettes; Tobacco use per day: 1 Pack ; Number of years: 50; Total pack years: 50 Assessment and Plan No data available for this section
[2017-01-22 15:45] VITALS: BP 162/67; PULSE 72; RESP 16; TEMP 97.4; O2SAT 99
--- NOTE | 2017-01-22 15:45 | NUR ---
ADMISSION Pt is an 86 year old female admitted to generations room number 193 from [facility] in [facility]. Pt was medically cleared in the [facility] and was brought to the unit at 1525 by WC and 1 [facility] staff. Pt has her own four wheel walker and requires x1 assist with ambulation due to poor safety awareness. Pt is oriented to person only at the time of admission and is flat in affect. Pt has been cooperative up to this point and does have a couple of bruises on her arms. Pt is wearing rings and would refuse to remove them at the time of admission. Pt states reason for admission as " i have pneumonia" pt is on 1:1 constant observation.
[2017-01-22 16:00] VITALS: PULSE 65; RESP 18
[2017-01-22] MEDS ORDERED: PRN ORDERS MC (16:00)
[2017-01-22] MEDS ORDERED: LORAZEPAM 2 MG/ML INJECTION IM PRN (16:00)
[2017-01-22] MEDS ORDERED: HALOPERIDOL 5 MG/ML INJECTION IM PRN (16:00)
[2017-01-22] MEDS ORDERED: HALOPERIDOL 0.5 MG TABLET PO PRN (16:00)
[2017-01-22] MEDS ORDERED: LORAZEPAM 0.5 MG TABLET PO PRN (16:00)
[2017-01-22 16:23] VITALS: Ht 149.9 cm; Wt 49.2 kg
[2017-01-22 16:34] VITALS: PULSE 75; RESP 18; O2SAT 99
[2017-01-22] MEDS: FLUTICASONE/SALMETEROL 250/50 DISK INHALER ORAL INH SCH (19:50)
--- NOTE | 2017-01-22 19:57 | NUR ---
PT SKIN ASSESSMENT TO BE COMPLETED BY HS RN. PT WANTS TO WAIT TO CHANGE HER CLOTHES AT BEDTIME. SHE DOES NOT AGREE TO SKIN ASSESSMENT AT THIS TIME. SEB REDMOND WAS GIVEN THIS INFORMATION DURING REPORT TIME.
[2017-01-22] MEDS: DONEPEZIL 10 MG TABLET PO SCH (20:45)
[2017-01-22 21:05] VITALS: BP 151/69; PULSE 67; RESP 20; TEMP 98.4; O2SAT 96
[2017-01-22 21:08] VITALS: PULSE 67; RESP 20
--- NOTE | 2017-01-23 00:10 | NUR ---
Status Summary Pt sitting in GR with visitors, O2 2L per NC. Pt cooperative with assessment, she is up with walker x 1 assist and confused as to why she is here. When asked she states she is here because she has pneumonia. While DPOA was here it was discovered that the whereabouts of her purse were unknown. DPOA did call the facility where pt came from but they stated the purse was not there. Pt was cooperative with meds and allowing skin assessment. Bruising to LFA was found. Pt was recently in [place]. Pt has not made any comments of wanting to harm herself or others. And no behaviors. Pt went to bed at 2044 and asleep by 2144. Pt has been up three times to the bathroom but back to sleep. Pt did c/o nausea. chief financial officer doctor was texted and new order for Mylanta 30 mL PRN q6hr received and given. Bed is in low position, SR up x 2, call light in reach but pt does not use and bed alarm is on. Will continue to monitor.
[2017-01-23] MEDS: MAG-AL + SIM XS 30 ML UDC PO PRN (02:10)
[2017-01-23] MEDS: ACETAMINOPHEN 325 MG TABLET PO PRN (04:43)
[2017-01-23 05:26] LABS: LDL CHOLESTEROL,CALCULATED 93.4 (66-159); VLDL CHOLESTEROL 43.6 MG/DL (0-28)
--- NOTE | 2017-01-23 05:54 | NUR ---
Chart Check 24 hour chart check completed
--- NOTE | 2017-01-23 05:56 | NUR ---
Summary Pt has been awake since 44. She has been up several more times to go to the bathroom and she is currently taking a shower. Pt did allow lab to draw blood this morning, she was not combative. When able to ask pt questions on suicide risk reassessment at one time she answered questions in [place] and at other times she would not answer. Pt has been more confused through this shift. Last time pt was asked if she wanted to hurt herself she grabbed her L Knee and started limping. Pt had PRN Tylenol 650mg at 0443. Pt has been on 1 L O2 NC not 2L as reported earlier. Pt has been 1:1 all shift, will continue to monitor.
[2017-01-23] MEDS: LEVOTHYROXINE 50 MCG TABLET PO SCH (06:35)
[2017-01-23] MEDS: FLUTICASONE/SALMETEROL 250/50 DISK INHALER ORAL INH SCH (07:31)
[2017-01-23] MEDS: SERTRALINE 25 MG TABLET PO SCH (08:03)
[2017-01-23] MEDS: RALOXIFENE 60 MG TABLET PO SCH (08:03)
[2017-01-23] MEDS: SENNA + DOCUSATE TAB PO SCH (08:03)
[2017-01-23] MEDS: POLYETHYL.GLYCOL 3350 PACKET 17gm PO SCH (08:03)
[2017-01-23 08:40] VITALS: BP 137/66; PULSE 71; RESP 20; TEMP 98.3; O2SAT 98
[2017-01-23 09:01] VITALS: RESP 18
[2017-01-23] MEDS ORDERED: ALBUTEROL/IPRATROPIUM INHAL. 2.5mg-0.5mg/3ml Neb. AEROSOL PRN (10:00)
--- NOTE | 2017-01-23 10:08 | HPPDOC ---
TRACEEAMIE D PROGRAMMER OR ANALYST 01/23/17 0834: HPI - Adult Date DATE: 01/23/17 TIME: 08:30 General Chief Complaint: Morbid ideation History of Present Illness Ashley Stewart is an 86 y/o admitted to [facility] on 01/22/17 b/c of increasing behaviors. She was admitted to [facility] in [place] on 01/21/17; previously she was living in an assisted living unit but began to demonstrate risk-taking behaviors and morbid ideation. She was seen at [place] on 01/20/17 after making morbid statements; and her discharge dx included pneumonia (rx Z-pack) and EtOH intoxication. Medical dx include: Cerebrovascular disease, COPD ( oxygen dependent 2L), hypothyroidism, OA; there is mention of alcohol use in her chart as well. Ashley was seen in the morning of 01/23/17 while eating breakfast. She denied any complaints, but isn't the best historian. ROS was quite limited. Review of accompanying records indicate that she's alert and oriented to self only. She wasn't able to add to her PMH, or supply family hx. I asked her why she was on oxygen and she reported it was for pneumonia. Some of her words were difficult to understand, but she clearly asked when she could leave. Past Medical History Past Medical History Patient's Medical History: (1) Dementia (2) Vitamin D deficiency (3) COPD (chronic obstructive pulmonary disease) (4) Oxygen dependent (5) Hypothyroidism (6) Polyosteoarthritis (7) Osteoporosis (8) Depression Surgical History Patient's Surgical History: Uncertain Current Medications Home Meds Reported Medications Fluticasone/Salmeterol (Advair 250-50 Diskus) 1 Disk W/Dev Inhaler, 1 PUFF ORAL INH RTBID for SHORTNESS OF AIR/WHEEZING, INHALER 01/22/17 Sertraline (Zoloft) 25 Mg Tablet, 25 MG PO DAILY, TAB 01/22/17 Sennosides/Docusate Sodium (Marion-Colace Tablet) 1 Each Tablet, 1 TAB PO DAILY 01/22/17 Raloxifene HCl (Evista) 60 Mg Tablet, 60 MG PO DAILY 01/22/17 Polyethylene Glycol 3350 (Miralax) 17 Gm Powd.pack, 1 PACKET PO DAILY, #30 PACKET 3 Refills 01/22/17 Levothyroxine Sodium (Synthroid) 50 Mcg Tablet, 50 MCG PO ACB, TAB BEST IF TAKEN BEFORE BREAKFAST 01/22/17 [Vitamin D] No Conflict Check, 09528 UNIT PO 2XW 01/22/17 Donepezil HCl (Aricept) 10 Mg Tablet, 10 MG PO HS, TAB 01/22/17 Allergies: Coded Allergies: Penicillins (Verified Allergy, Unknown, 01/22/17) Sulfa (Sulfonamide Antibiotics) (Verified Allergy, Unknown, 01/22/17) doxycycline (Verified Allergy, Unknown, 01/22/17) iodine (Verified Allergy, Unknown, 01/22/17) Family History Family History: Unknown - pt unable to answer Social History Smoking Status: Smoker,current status unk Substance Use Type: does not use Alcohol Intake: occasionally Marital Status: [facility] Advance Directives: Yes DPOA for Healthcare Only Social History Comments Ethnicity & Primary Language: Pina PCP: Dr. Curtis Aragon Psych: Chava Quach Review of Systems Unable to Obtain ROS Due to: dementia (ROS limited) Constitutional: DENIES: fever ENMT Sinuses: NOT FOUND: congestion, rhinorrhea Cardiovascular Vascular: DENIES: pedal edema Pulmonary Respiratory: other (reports "pneumonia") GI Upper Abdomen: DENIES: vomiting General: DENIES: dysuria Musculoskeletal General: DENIES: pain All Other Systems All Other Systems: Reviewed (remainder of 10-point ROS Neg.) Physical Exam General General Nourishment: well nourished, well developed, thin General Body Habitus: well groomed Vital Signs Vital Signs Date Time Temp Pulse Resp B/P Pulse Ox O2 Delivery O2 Flow Rate FiO2 01/23/17 07:34 66 01/23/17 07:34 18 01/23/17 07:34 Nasal Cannula 2.00 01/22/17 21:05 98.4 151/69 96 Height (Feet): 4 Height (Inches): 11.00 Eyes Brief: FOUND: PERRL, NOT FOUND: scleral icterus ENMT Brief: FOUND: mucosa moist Neck Brief: NOT FOUND: adenopathy Respiratory Inspection: FOUND: other (on oxygen) Auscultation: FOUND: rales (b/l bases) Cardiovascular (brief) Cardiac Brief: FOUND: regular rate, regular rhythm Cardiovascular Edema: 0: Anasarca, Arm (L), Arm (R), Face, Leg (L), Leg (R) Abdomen Inspection: NOT FOUND: distention Palpation: FOUND: soft, NOT FOUND: tender Auscultation: FOUND: normo active Musculoskeletal (brief) Musculoskeletal Brief: NOT FOUND: deformity Integumentary (brief) Integumentary Brief: FOUND: dry, pink, warm Neurologic (brief) Neurological Brief: NOT FOUND: facial droop, ptosis Neurologic GCS Eye Opening: (4)Spontaneous GCS Verbal: (4)Confused GCS Motor: (6)Obeys Commands RN Documented GCS Total: 14 Psychiatric (brief) FOUND: alert, attentive Laboratory Laboratory Tests Test 01/22/17 14:02 01/22/17 14:10 01/22/17 14:28 01/23/17 04:29 White Blood Count 8.8T/MM3 Red Blood Count 3.73M/MM3 Hemoglobin 11.6GM/DL Hematocrit 36.8% Mean Corpuscular Volume 98.7UM3 Mean Corpuscular Hemoglobin 31.1UUG Mean Corpuscular Hemoglobin Concent 31.5GM/DL RDW Standard Deviation 41.2FL Platelet Count 185T/MM3 Mean Platelet Volume 9.8UM3 Immature Granulocyte % (Auto) 0.1% Neutrophils (%) (Auto) 66.4% Lymphocytes (%) (Auto) 22.6% Monocytes (%) (Auto) 5.7% Eosinophils (%) (Auto) 4.7% Basophils (%) (Auto) 0.5% Absolute Immature Granulocyte (auto 0.01T/MM3 Absolute Neutrophils (auto) 5.9T/MM3 Absolute Lymphocytes (auto) 2.0T/MM3 Absolute Monocytes (auto) 0.5T/MM3 Absolute Eosinophils (auto) 0.4T/MM3 Absolute Basophils (auto) 0.0T/MM3 Turbidity < 20 Sodium Level 146MEQ/L Potassium Level 3.9MEQ/L Chloride Level 102MEQ/L Carbon Dioxide Level 33MEQ/L Anion Gap 11MEQ/L Blood Urea Nitrogen 22.0MG/DL Creatinine 0.9MG/DL Glomerular Filtration Rate Calc 59 BUN/Creatinine Ratio 24RATIO Glucose Level 139MG/DL Calculated Osmolality 286MOSM/KG Calcium Level 8.7MG/DL Icterus Index < 2 Thyroid Stimulating Hormone (TSH) 3.30MIU/L Chemistry Specimen Hemolysis < 15 Salicylates Level < 1.0MG/DL Acetaminophen Level < 10UG/ML Alcohol, Quantitative <10MG/DL Urine Collection Type Voided-not cc-midstr Urine Color Yellow Urine Turbidity Clear Urine pH 5.5 Urine Specific [place] 1.015 Urine Protein Negative Urine Glucose (UA) Negative Urine Ketones Negative Urine Blood Negative Urine Nitrite Negative Urine Bilirubin Negative Urine Urobilinogen 0.2EU/DL Urine Leukocyte Esterase 2+ Urine RBC None seen/HPF Urine WBC 5-10/HPF Urine Squamous Epithelial Cells 10-20 Urine Bacteria Trace Urine Culture Indicated Cult not indicated Urine Opiates Screen NegativeNG/ML Urine Oxycodone Screen NegativeNG/ML Urine Methadone Screen NegativeNG/ML Urine Propoxyphene Screen NegativeNG/ML Urine Barbiturates Screen NegativeNG/ML Urine Tricyclic Antidepressants NegativeNG/ML Urine Phencyclidine Screen NegativeNG/ML Urine Amphetamines Screen NegativeNG/ML Urine Methamphetamines Screen NegativeNG/ML Urine Benzodiazepines Screen NegativeNG/ML Urine Cocaine Screen NegativeNG/ML Urine Cannabinoids Screen NegativeNG/ML Lab Scanned Report REFERENCE [id number] Hemoglobin A1c 5.6% Triglycerides Level 218MG/DL Cholesterol Level 205MG/DL LDL Cholesterol, Calculated 93.4 VLDL Cholesterol 43.6MG/DL HDL Cholesterol Direct 68MG/DL Cholesterol/HDL Ratio 3.0RATIO Assessment & Plan Problems: (1) Pneumonia Status: Acute Assessment & Plan: Rx azithromycin on 01/21/17 (2) Hypernatremia Status: Acute Assessment & Plan: POA (3) Normocytic anemia Status: Acute Assessment & Plan: POA (4) Suicidal ideations Status: Acute (5) Dementia Status: Chronic (6) COPD (chronic obstructive pulmonary disease) Status: Chronic (7) Osteoporosis Status: Chronic (8) Depression Status: Chronic (9) Hypothyroidism Status: Chronic (10) Vitamin D deficiency Status: Chronic (11) Oxygen dependent Status: Chronic (12) Polyosteoarthritis Status: Chronic Plan/Intensity of Service Agree with admission to [facility]. Chart reviewed - recent pneumonia - finish Azithromycin course (started on ). Interaction with psychotropics potentially causing prolonged QT - EKG shows NSR with QTc of 432 at a rate of 78. CXR reviewed - pneumonia vs aspiration vs chronic disease to lower lobes. COPD, oxygen dependent on 2L. Continue baseline inhalers and will have DuoNeb available PRN. Will consult Speech to evaluate for aspiration and to recommend a diet consistency. Labs reviewed - mild normocytic anemia; mild hypernatremia. Hyperlipidemia noted. TSH 3.30, vitamin B12 and folate are pending. UA - possible UTI with 2+ leuk esterace and 5-10 WBC - send for cx. May need to adjust abx but she has allergies to PCN and sulfa; would prefer to avoid fluoroquinolones given propensity towards acute delirium. UDS was negative. Head CT notable for moderate atrophy. Will continue to follow. Provide safe, supportive environment. DNR status noted. Code Status Do Not Resuscitate Hospital Course Summary Disclaimer The hospital course summary below is not to be considered part of the above Progress Note. Hospital Course Summary 01/23/17 Agree with admission to [facility]. Chart reviewed - recent pneumonia - finish Azithromycin course (started on ). Interaction with psychotropics potentially causing prolonged QT - EKG shows NSR with QTc of 432 at a rate of 78. CXR reviewed - pneumonia vs aspiration vs chronic disease to lower lobes. COPD, oxygen dependent on 2L. Continue baseline inhalers and will have DuoNeb available PRN. Will consult Speech to evaluate for aspiration and to recommend a diet consistency. Labs reviewed - mild normocytic anemia; mild hypernatremia. Hyperlipidemia noted. TSH 3.30, vitamin B12 and folate are pending. UA - possible UTI with 2+ leuk esterace and 5-10 WBC - send for cx. May need to adjust abx but she has allergies to PCN and sulfa; would prefer to avoid fluoroquinolones given propensity towards acute delirium. UDS was negative. Head CT notable for moderate atrophy. Will continue to follow. Provide safe, supportive environment. DNR status noted. NOEL REYNAGA MD 01/23/172033: Past Medical History Current Medications Home Meds Reported Medications Fluticasone/Salmeterol (Advair 250-50 Diskus) 1 Disk W/Dev Inhaler, 1 PUFF ORAL INH RTBID for SHORTNESS OF AIR/WHEEZING, INHALER 01/22/17 Sertraline (Zoloft) 25 Mg Tablet, 25 MG PO DAILY, TAB 01/22/17 Sennosides/Docusate Sodium (Marion-Colace Tablet) 1 Each Tablet, 1 TAB PO DAILY 01/22/17 Raloxifene HCl (Evista) 60 Mg Tablet, 60 MG PO DAILY 01/22/17 Polyethylene Glycol 3350 (Miralax) 17 Gm Powd.pack, 1 PACKET PO DAILY, #30 PACKET 3 Refills 01/22/17 Levothyroxine Sodium (Synthroid) 50 Mcg Tablet, 50 MCG PO ACB, TAB BEST IF TAKEN BEFORE BREAKFAST 01/22/17 [Vitamin D] No Conflict Check, 38233 UNIT PO 2XW 01/22/17 Donepezil HCl (Aricept) 10 Mg Tablet, 10 MG PO HS, TAB 01/22/17 Allergies: Coded Allergies: Penicillins (Verified Allergy, Unknown, 01/22/17) Sulfa (Sulfonamide Antibiotics) (Verified Allergy, Unknown, 01/22/17) doxycycline (Verified Allergy, Unknown, 01/22/17) iodine (Verified Allergy, Unknown, 01/22/17) Assessment & Plan Plan/Intensity of Service Have independently interviewed and examined pt. Chart reviewed. Case discussed with my PROGRAMMER OR ANALYST. Above care plan developed with my supervision; agree with above. Pt seen in her room this evening-very restless and agitated. Did not want to engage in conversation. Refused exam. MSE: awake, restless and mildly agitated. Lungs: Breathing RA without distress Plan: Agree with admission to [facility] for geropsychiatric treatment and medication adjustments. Psych will manage and adjust psychoactive medications. Provide safe, supportive environment. Continue home medications. Pt medically stable for Generation floor activities. AMIE EASLEY APRN January 23, 2017 08:34 NOEL REYNAGA MD January 23, 2017 20:34
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
--- NOTE | 2017-01-23 10:58 | NUR ---
CHEMICAL LABORATORY TESTER--AM GROUP Pt. was present and actively engaged in psychoeducational group facilitated by [facility]. Topic was on favorite memories of our mothers and Mother's Day memories. Pt. was alert, Ox1, with pleasant mood. She was alert and attentive as others spoke. She would provide short answers to questions that were directed her way. Expanded conversation to include influence of spiritual fareed as a means of support and strength when facing challenges in life. Ended group by playing Hymns. Pt. remained engaged and calm throughout entire group. She was observed smiling and moving her arms in a dancing movement to some of the songs.
--- NOTE | 2017-01-23 11:15 | NUR ---
FACULTY RESEARCH ASSISTANT -- SUICIDE RISK ASSESSMENT - LEVEL I During assessment with pt, pt denied any SI. Pt does not have a plan that she can verbalize at this time and states the only reason she became angry the other day and threatened to kill herself was because another resident was being rude to her. According to the DPOA, on 01/20/17 when the pt came back from an acute hospitalization with dx of pneumonia and ETOH, pt wrapped her oxygen tubing around her neck and stated she wanted to end it all. At this time, during the assessment, pt presented calm and able to state she no longer has those feelings.
[2017-01-23] MEDS: AZITHROMYCIN 250 MG TABLET PO SCH (11:49)
--- NOTE | 2017-01-23 12:45 | NUR ---
MID SHIFT NOTE PT IS ORIENTED TO PERSON AND PLACE. PT IS ABLE TO MAKE NEEDS KNOWN TO STAFF. PT HAS BEEN CONTINENT OF BOWEL AND BLADDER. PT EATS WELL AND PARTICIPATED IN GROUP AND ACTIVITIES. PT MADE NO INAPPROPRIATE COMMENTS RE SELF HARM AND HAS BEEN SOCIALIZING WITH PT AND STAFF. WILL CONTINUE TO MONITOR PT TILL END OF SHIFT.
[2017-01-23 16:50] VITALS: BP 122/83; PULSE 73; RESP 18; TEMP 98.9; O2SAT 100
--- NOTE | 2017-01-23 19:15 | NUR ---
SHIFT SUMMARY SEE PRIOR NOTE. PT HAS CONTINUED WITH POSITIVE BEHAVIOR. PT HAS HAD NO OUTBURSTS AND RECEIVED NO PRN MEDICATIONS. PT HAS SPENT THE DAY IN THE DAY ROOM AND DINNING ROOM WITH STAFF AND PT. PT HAS BEEN COMPLIANT WITH ALL CARES. WILL CONTINUE TO MONITOR PT TILL END OF SHIFT REPORT.
[2017-01-23] MEDS: DONEPEZIL 10 MG TABLET PO SCH (20:03)
[2017-01-23 20:17] VITALS: BP 144/65; PULSE 76; RESP 18; TEMP 98.5; O2SAT 98
--- NOTE | 2017-01-23 21:13 | GENHPPDOC ---
[facility] 01/23/17 Time of Service: 17:00 Start Time: 17:00 Stop Time: 17:45 >50% of this visit spent in counseling/coordination care. Chief Complaint: Depression, morbid thoughts History of Present Illness Patient is an 86-year-old, Turk[place] female who was transferred on from [facility] in [facility] for expressing morbid thoughts and threatening to walk out of the facility. Patient was making statements of "wanting to " at the facility.Patient was medically cleared in the ER where chest x-ray showed increased marking on both lungs with the the left greater than the right and she is currently on Z-pack. Her CT head showed generalized atrophy and chronic ischemic changes in the white matter. There is report of recent behavior changes including use of alcohol and expressing morbid thoughts. Due to her yelling disturbing other residents, patient was taken to [facility] ER on 01/20/17 where it was recommended that patient be placed in a locked unit. Reviewed patient's CBC, CMP, TSH, UDS which were all unremarkable. Patient was seen to be alert and has oxygen via nasal canula in situ at 2L. She appears to have some language barrier, but admits to feeling sad with intermittent crying spells. She also reports history of suicide ideations, with insomnia and decrease appetite. Patient is currently on Sertraline 25mg daily, Donepezil 10mg. Depression: irritable, social withdrawl, sleep disturbance, morbid thinking Dementia: memory impairment, poor executive function. Past Medical History Past Medical History Patient's Medical History: (1) Dementia (2) Vitamin D deficiency (3) COPD (chronic obstructive pulmonary disease) (4) Oxygen dependent (5) Hypothyroidism (6) Polyosteoarthritis (7) Osteoporosis (8) Depression Surgical History Patient's Surgical History: Uncertain Current Medications Home Meds Reported Medications Fluticasone/Salmeterol (Advair 250-50 Diskus) 1 Disk W/Dev Inhaler, 1 PUFF ORAL INH RTBID for SHORTNESS OF AIR/WHEEZING, INHALER 01/22/17 Sertraline (Zoloft) 25 Mg Tablet, 25 MG PO DAILY, TAB 01/22/17 Sennosides/Docusate Sodium (Marion-Colace Tablet) 1 Each Tablet, 1 TAB PO DAILY 01/22/17 Raloxifene HCl (Evista) 60 Mg Tablet, 60 MG PO DAILY 01/22/17 Polyethylene Glycol 3350 (Miralax) 17 Gm Powd.pack, 1 PACKET PO DAILY, #30 PACKET 3 Refills 01/22/17 Levothyroxine Sodium (Synthroid) 50 Mcg Tablet, 50 MCG PO ACB, TAB BEST IF TAKEN BEFORE BREAKFAST 01/22/17 [Vitamin D] No Conflict Check, 77276 UNIT PO 2XW 01/22/17 Donepezil HCl (Aricept) 10 Mg Tablet, 10 MG PO HS, TAB 01/22/17 Allergies: Coded Allergies: Penicillins (Verified Allergy, Unknown, 01/22/17) Sulfa (Sulfonamide Antibiotics) (Verified Allergy, Unknown, 01/22/17) doxycycline (Verified Allergy, Unknown, 01/22/17) iodine (Verified Allergy, Unknown, 01/22/17) Family History Family History: Unknown - pt unable to answer Vaccines 05/25/16 04/16/16 Social History Smoking Status: Smoker,current status unk Substance Use Type: does not use Alcohol Intake: occasionally Marital Status: Housing: assisted Advance Directives: Yes DPOA for Healthcare Only Review of Systems Constitutional: REPORTS: insomnia Eyes General: DENIES: exudate, watering Lids/Accessories: DENIES: eye protrusion ENMT Hearing: DENIES: hearing loss Balance: ataxia Mouth/Throat: DENIES: painful swallowing Cardiovascular dyspnea on exertion Rhythm/Rate: DENIES: tachycardia Pulmonary Respiratory: pneumonia hx, DENIES: hyperventilation GI Upper Abdomen: DENIES: hematemesis, vomiting General: cloudy urine, DENIES: pain Musculoskeletal General: pain (back pain) Psychiatric Psychiatric: depression, irritability, memory impairment Generations Exam Vitals Vital Signs Date Time Temp Pulse Resp B/P Pulse Ox O2 Delivery O2 Flow Rate FiO2 01/23/17 20:17 98.5 76 18 144/65 98 Nasal Cannula 1.00 Physical examination performed by the hospitalist. Height (Feet): 4 Height (Inches): 11.00 Mental Status Exam Muscle Strength/Tone: Weak Dressing: Casual Grooming: Good Attitude: Tense Motor Activity: Normal Eye Contact: Poor Speech: Normal Volume: Soft Rhythm: Appropriate Rhythm Sensory: Alert Orientation: Oriented to person, Oriented to place Mood: Depressed, Irritable Affect: Restricted Rate of Thoughts: Appropriate Rate Thought Organization: [place] Associations: Intact Abstract Reasoning: Impaired, concrete Computation: Poor Computation Perception/Psychotic: Hx psychosis,not current Attention Span/Concentration: Short Span Language: Naming Impaired Fund of Knowledge: Poor fund of knowledge Memory: Poor-immediate, Poor-recent Suicidal Ideation: Fleeting Homicidal Ideation: None Insight: Poor Judgment: Poor Impulse Control: Poor Laboratory Tests Test 01/23/17 04:29 Hemoglobin A1c 5.6% Triglycerides Level 218MG/DL Cholesterol Level 205MG/DL LDL Cholesterol, Calculated 93.4 VLDL Cholesterol 43.6MG/DL HDL Cholesterol Direct 68MG/DL Cholesterol/HDL Ratio 3.0RATIO Vitamin B12 Level Pending Folate Pending Assessment and Plan (1) 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 Level 2 suicide precautions. Evaluate and stabilize patient KIRTI BENTLEY MD January 23, 2017 20:52
--- NOTE | 2017-01-24 00:50 | NUR ---
Mid shift Pt sitting in DR at start of this shift. Pt with bright affect, is a/o to self, cooperative with assessment and cares. Pt stated she had pain to her L knee but when she was offered Tylenol with night medications she refused. Pt is up with walker and assist x1. She has 1L O2 per NC d/t recent dx of pneumonia. Pt has been cooperative with medications and cares. Pt in bed at 1945 and asleep by 2100 and has been up x1 to the BR and then back to sleep. Bed is in low position, SR up x2, call light in reach but pt does not use and bed alarm on and functioning. Will continue to monitor. No behaviors or PRNs so far this shift. Pt denies SI to RN and no thoughts or SI reported.
--- NOTE | 2017-01-24 00:57 | NUR ---
Chart Check 24 hour chart check completed
[2017-01-24 04:09] LABS: FOLATE 9.7 NG/ML (2.76-20)
[2017-01-24] MEDS: ACETAMINOPHEN 325 MG TABLET PO PRN ×3 (05:03→20:36)
--- NOTE | 2017-01-24 05:49 | NUR ---
Shift Summary Pt slept well through the night only up once to BR since MDN. Pt did receive Tylenol 650 mg at 0503 for pain to R knee. Pt gait was unstable at this time but she used walker appropriately and had assist x 2. Pt has been cooperative with cares and medications this shift. No behaviors and no statements of SI heard or reported. Pt currently resting in bed at this time. Bed is in low position, locked, SR up x 2, call light in reach but pt does not use appropriately and bed alarm is on and functioning. Will continue to monitor.
[2017-01-24] MEDS: LEVOTHYROXINE 50 MCG TABLET PO SCH (06:19)
--- NOTE | 2017-01-24 07:15 | NUR ---
Sleep Time Pt reported asleep at 2100 last pm and was awake at 0715.
--- NOTE | 2017-01-24 07:30 | NUR ---
Pt. Status Pt sitting in day room. Has flat affect and states she does not feel good and reports wants to go home. Needs reminding to put 02 on and encourage to take deep breaths. Diminished at bases. RT called and asked for I.S.
[2017-01-24 08:00] VITALS: RESP 16
[2017-01-24] MEDS: AZITHROMYCIN 250 MG TABLET PO SCH (08:00)
[2017-01-24] MEDS: ERGOCALCIFEROL 50,000 UNIT CAPSULE PO SCH (08:00)
[2017-01-24] MEDS: POLYETHYL.GLYCOL 3350 PACKET 17gm PO SCH (08:00)
[2017-01-24] MEDS: RALOXIFENE 60 MG TABLET PO SCH (08:00)
[2017-01-24] MEDS: SENNA + DOCUSATE TAB PO SCH (08:00)
[2017-01-24 08:01] VITALS: BP 118/61; PULSE 75; RESP 16; TEMP 98.1; O2SAT 95
[2017-01-24] MEDS: SERTRALINE 25 MG TABLET PO SCH (08:01)
[2017-01-24] MEDS: FLUTICASONE/SALMETEROL 250/50 DISK INHALER ORAL INH SCH ×2 (10:37→19:15)
--- NOTE | 2017-01-24 11:19 | NUR ---
PROGRAM DEVELOPMENT MANAGER--AM GROUP Pt. was present and actively engaged in psychoeducational group facilitated by [facility]. Began group by talking about Richard Zabala and traditions of the celebration. Pt. was not able to identify reason for the celebration. She was alert and began group with a depressed mood and congruent affect. When asked how she was feeling today, she shrugged her shoulders and made a frowning face. Pt. admits she has had some pain with one of her knees. Per patient request, SW played music from [place] and pt. began to dance to the music with her hands. Played different kinds of music from different countries and some patients were able to identify the country the music represented. Ended group by listening to special requests from patients. Pt. requested [employer] music. When it was played, pt. stood up, removed her nasal cannula and danced around the room with smile on her face. Pt.'s mood appeared improved and she looked relaxed at end of group session.
--- NOTE | 2017-01-24 11:41 | NUR ---
DAIRY ASSOCIATE -- [place]-SUICIDE RATING SCALE Pt was able to accurately answer questions in regard to this assessment. Pt does get angry after a few of the questions in the assessment. When asked if pt would want to kill herself, pt replied no. However, she did say that "I don't want to live any more." In reference to this, pt states she is lonely. Pt is tired of being on the unit and she is tired of people asking her questions. She yells at this SW to "STOP". SW redirected pt and began talking about music and some of the happy things in pt's life. Pt calmed down and SW finished the assessment. Pt states, "I don't have nothing." "I can't do nothing." She is frustrated that she is alive and can't just . At this time, SW feels pt will continue to have morbid thoughts, but she is not having any SI.
--- NOTE | 2017-01-24 12:35 | NUR ---
Slums Score 4/30 and pt reports "You think I am so dumb." Provided reassurance and explanation about test.
--- NOTE | 2017-01-24 14:24 | NUR ---
CM CM SPOKE WITH PT LORETTA TAVERAS. NITIN STATED THAT PT WILL RETURN TO [facility] IN [place], [place] AT TIME OF D/C FROM [facility]. PT HAS MENTAL HEALTH FOLLOW UP WITH POOJA WARNER IN [facility]. CM SPOKE WITH RADHA WHO WAS FILLING IN FOR SARY AT [facility] AND HE STATES THAT [facility] WILL TRANSPORT PT AT TIME OF D/C. RADHA HAS CM CONTACT INFORMATION AND UNDERSTANDS CM ROLE. RADHA DID PROVIDE CM WITH CONTACT INFORMATION FOR SARY. RADHA IS AWARE TO CONTACT CM IF NEEDS ARISE.
--- NOTE | 2017-01-24 15:06 | NUR ---
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 was present and actively engaged in psychoeducational group facilitated by [facility]. Topic was importance of having fun and staying active at all ages. Pt. had difficulty identifying activities that she used to enjoy. With coaching, she was able to identify dancing and sewing. Pt. was alert, Ox2 (person and hospital). She reported that her mood had improved slightly from this morning. Played neurocognitive [employer]?Lex[employer] game to help stimulate interaction between staff and peers. Pt. attempted to answer all questions asked. She was attentive and was observed smiling and laughing at various things that were said.
--- NOTE | 2017-01-24 15:36 | PNPDOC ---
Subjective Date DATE: 01/24/17 TIME: 15:32 Subjective Ashley is seen today during group therapy. She is alert and questions appropriately. She is at her baseline oxygen of 1 liter by nasal cannula. She denies feeling short of breath or having chest pain. She does complain of having bilateral knee discomfort overnight, however, that has now resolved. The pressure this morning 118/61, pulse in the 70s. Objective Vital Signs Vital signs Vital Signs Date Time Temp Pulse Resp B/P Pulse Ox O2 Delivery O2 Flow Rate FiO2 01/24/17 10:38 96 01/24/17 08:01 98.1 16 118/61 95 Nasal Cannula 1.00 Height (Feet): 4 Height (Inches): 11.00 Weight (Kilograms): 51.600 General General Appearance: Alert, Orientated x 1, Cooperative, No Acute Distress Eyes (Brief) Eyes: FOUND: EOMI ENMT (Brief) ENMT: FOUND: mucosa moist, normal dentition, NOT FOUND: pharnyx erythema Neck (Brief) Neck: FOUND: midline, NOT FOUND: adenopathy, carotid bruits, tracheal deviation Respiratory (Brief) Respiratory: FOUND: clear all griffin, equal bilaterally, NOT FOUND: wheezes Cardiovascular (Brief) Cardiac: FOUND: regular rate, regular rhythm, NOT FOUND: murmur, pedal edema Capillary Refill: <2 sec Abdomen (Brief) Abdominal: FOUND: BS normo active x4, soft, NOT FOUND: distended, tender Lymphatic (Brief) Lymphatic: NOT FOUND: adenopathy Musculoskeletal (Brief) Musculoskeletal: NOT FOUND: tenderness Integumentary (Brief) Integumentary: FOUND: dry, pink, warm Neurologic (Brief) Neurological: FOUND: cranial 2-12 intact Psychiatric (Brief) Psychiatric: FOUND: alert, attentive, normal affect Microbiology Microbiology Microbiology Date/Time Source Procedure Growth Status 01/23/17 18:14 Not Provided Urine Culture - Preliminary No growth Resulted Assessment & Plan Problems: (1) Pneumonia Status: Acute Assessment & Plan: Rx azithromycin on 01/21/17 (2) Hypernatremia Status: Acute Assessment & Plan: POA (3) Normocytic anemia Status: Acute Assessment & Plan: POA (4) Suicidal ideations Status: Acute (5) Dementia Status: Chronic (6) COPD (chronic obstructive pulmonary disease) Status: Chronic (7) Osteoporosis Status: Chronic (8) Depression Status: Chronic (9) Hypothyroidism Status: Chronic (10) Vitamin D deficiency Status: Chronic (11) Oxygen dependent Status: Chronic (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 Given chronic oxygen dependence. Due to COPD. Continue with azithromycin for treatment of pneumonia. Course will end tomorrow 01/25. Advair scheduled twice a day. Senna plus, and MiraLAX for chronic bowel motivation. Patient may use Tylenol as needed for pain control. Vitamin D twice weekly for supplementation Encourage patient to participate in unit activities and provide a safe environment. Code Status Do Not Resuscitate Hospital Course Summary Disclaimer The hospital course summary below is not to be considered part of the above Progress Note. Hospital Course Summary 01/23/17 Agree with admission to [facility]. Chart reviewed - recent pneumonia - finish Azithromycin course (started on ). Interaction with psychotropics potentially causing prolonged QT - EKG shows NSR with QTc of 432 at a rate of 78. CXR reviewed - pneumonia vs aspiration vs chronic disease to lower lobes. COPD, oxygen dependent on 2L. Continue baseline inhalers and will have DuoNeb available PRN. Will consult Speech to evaluate for aspiration and to recommend a diet consistency. Labs reviewed - mild normocytic anemia; mild hypernatremia. Hyperlipidemia noted. TSH 3.30, vitamin B12 and folate are pending. UA - possible UTI with 2+ leuk esterace and 5-10 WBC - send for cx. May need to adjust abx but she has allergies to PCN and sulfa; would prefer to avoid fluoroquinolones given propensity towards acute delirium. UDS was negative. Head CT notable for moderate atrophy. Will continue to follow. Provide safe, supportive environment. DNR status noted. 01/24/17 Continue on 1 liter of oxygen by nasal cannula. Given chronic oxygen dependence. Due to COPD. Continue with azithromycin for treatment of pneumonia. Course will end tomorrow 01/25. Advair scheduled twice a day. Senna plus, and MiraLAX for chronic bowel motivation. Patient may use Tylenol as needed for pain control. Vitamin D twice weekly for supplementation Encourage patient to participate in unit activities and provide a safe environment. ARIADNA DANIEL APRN January 24, 2017 15:36
[2017-01-24 16:00] VITALS: BP 143/65; PULSE 73; RESP 16; TEMP 98.4; O2SAT 94
--- NOTE | 2017-01-24 17:32 | GENPN ---
[facility] Subjective Date DATE: 01/24/17 TIME: 17:28 Subjective/Severity of Illness Medications Current Medications Medications (Trade) Dose Ordered Sig/Vasile Start Time Stop Time Status Last Admin Dose Admin Donepezil HCl (Aricept) 10 mg HS 01/22/17 21:00 01/23/17 20:03 10 MG Salmeterol Xinafoate/ Fluticasone (Advair 250-50 Diskus) 1 puff RTBID 01/22/17 21:00 01/24/17 10:37 1 PUFF Levothyroxine Sodium (Synthroid) 50 mcg ACB 01/23/17 06:30 01/24/17 06:19 50 MCG Polyethylene Glycol (Miralax) 17 g DAILY 01/23/17 09:00 01/24/17 08:00 17 G Raloxifene HCl (Evista) 60 mg DAILY 01/23/17 09:00 01/24/17 08:00 60 MG Senna/Docusate Sodium (Senna Plus) 1 tab DAILY 01/23/17 09:00 01/24/17 08:00 1 TAB Sertraline HCl (Zoloft) 25 mg DAILY 01/23/17 09:00 01/24/17 08:01 25 MG Ergocalciferol (Vitamin D) 50,000 unit MoFr@09 01/24/17 09:00 01/24/17 08:00 50,000 UNIT Miscellaneous Medication (May use PRN orders) 1 PRN PRN 01/22/17 16:00 Haloperidol (Haldol) 0.5 mg Q6H PRN 01/22/17 16:00 Lorazepam (Ativan) 0.5 mg Q6H PRN 01/22/17 16:00 Lorazepam (Ativan) 0.5 mg Q6H PRN 01/22/17 16:00 Haloperidol Lactate (Haldol 5 Mg/ml Inj) 0.5 mg Q6H PRN 01/22/17 16:00 Al Hydroxide/Mg Hydroxide (Maalox Plus Xs) 30 ml Q6H PRN 01/23/17 02:00 01/23/17 02:10 30 ML Acetaminophen (Tylenol Regular Strength) 1-2 tabs Q5H PRN 01/23/17 04:45 01/24/17 10:08 650 MG Azithromycin (ZITHROMAX 250 mg) 250 mg DAILY 01/23/17 10:00 01/25/17 09:01 01/24/17 08:00 250 MG Albuterol/ Ipratropium (Duoneb) 3 ml Q2H PRN 01/23/17 10:00 Subjective Pt seen and chart examined. Nursing reports pt slept well and has a good appetite. Pt scored a 4 on her SLUMS. PT appears depressed and is irritable at times. On face to face the pt states she is doing well. She states she would like to but denies any S/I. Reports tolerating her meds. Is exit seeking at times and is demanding to leave. Denies pain. Time of Service: 17:00 Start Time: 17:00 Stop Time: 17:15 Care >50% of this visit spent in counseling/coordination care. Generations Exam Vitals Vital Signs Date Time Temp Pulse Resp B/P Pulse Ox O2 Delivery O2 Flow Rate FiO2 01/24/17 16:00 98.4 73 16 143/65 94 Room Air 01/24/17 08:01 1.00 Physical examination performed by the hospitalist. Height (Feet): 4 Height (Inches): 11.00 Mental Status Exam Muscle Strength/Tone: Normal Dressing: Casual Grooming: Good Attitude: Guarded Motor Activity: Retardation Eye Contact: Fair Speech: Slowed Volume: Soft Rhythm: Appropriate Rhythm Sensory: Alert Orientation: Oriented to person Mood: Irritable Affect: Congruent, Restricted Rate of Thoughts: Delayed Thought Organization: [place] Associations: Intact Abstract Reasoning: Impaired, concrete Thought Content: Normal Perception/Psychotic: Perception Normal Attention Span/Concentration: Short Span Fund of Knowledge: Poor fund of knowledge Memory: Poor-immediate, Poor-recent Suicidal Ideation: None Homicidal Ideation: None Insight: Poor Judgment: Poor Impulse Control: Poor Assessment and Plan (1) 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 Level 2 suicide precautions. Evaluate and stabilize patient 01/24/17 Continue current care Cont. current psych. meds LA SANTOS MD January 24, 2017 17:32
--- NOTE | 2017-01-24 18:00 | NUR ---
Shift Summary and Sleep Time Pt had no sleep time this shift. Pt is impatient at times, wants to go home and responds in short brief terse comments. No physical aggression. Was frustrated with meal received and nurse ordered new tray for her but she continued to complain about waiting for tray. Did well with meal and then assisted with shower. Noted 02 sat of 94% on room air after ambulation without 02 and then placed on 02 while in day room.
[2017-01-24 20:32] VITALS: PULSE 73; RESP 16
[2017-01-24] MEDS: DONEPEZIL 10 MG TABLET PO SCH (20:32)
[2017-01-24 21:25] VITALS: BP 146/69; PULSE 73; RESP 15; TEMP 97.8; O2SAT 97
--- NOTE | 2017-01-24 23:39 | NUR ---
IN BED Pt went to bed at 2100, Pt has been in bed since, got up once to void and back to bed. Pt in no acute distress. Pt resting quietly in bed with eyes closed. Will continue to monitor. Call light in reach. Bed locked and low.
--- NOTE | 2017-01-25 00:57 | NUR ---
Mid-shift Summary Pt has been cooperative and A/O to self and date, didn't ask place. Pt took medications whole without difficulty. Pt in bed and reported that she had already brushed her teeth. Pt given PRN tylenol for c/o left knee pain rated 5/10. Pt in no acute distress. Pt remains on O2 @ 1L per NC. Pt up in day room for the evening and then went to bed. Pt has voided once since she fell asleep, and has gone back to sleep. Will continue to monitor. Call light in reach. Bed locked and low. Bed alarm on.
[2017-01-25] MEDS: ACETAMINOPHEN 325 MG TABLET PO PRN ×3 (03:05→23:42)
--- NOTE | 2017-01-25 03:20 | NUR ---
Chart Check 24 hour chart check completed
--- NOTE | 2017-01-25 05:29 | NUR ---
Shift Summary Pt has been A/O to self and date. Pt has been cooperative with staff. Pt did wake up around 0300 and grimacing in pain and holding her left knee. Pt sat for awhile and then able to make it to the bathroom and void and back to bed with stand by assist x 1 with FWW. Pt given PRN tylenol at 0305 po for left knee pain, FLACC 6-7. Pt now quiet in bed with eyes closed and O2 @ 1L per NC. Pt has been cooperative with cares and staff. Pt has been hard to understand at times and unsure if this is language barrier or Pt trying to find words. Pt denies suicide plan and any plans. Pt has had no verbal or physical aggression. Will continue to monitor. Call light in reach. Bed locked and low. Bed alarm on.
[2017-01-25] MEDS: LEVOTHYROXINE 50 MCG TABLET PO SCH (06:35)
--- NOTE | 2017-01-25 07:30 | NUR ---
Pt Assessment Pt awake and in day room and has flat affect. Lung sounds coarse and rhonchi heard left greater that right base. 02 1L/cannula continued. Pt cooperative but irritable and demanding.
[2017-01-25 07:37] VITALS: BP 129/48; PULSE 67; RESP 20; TEMP 97.4; O2SAT 98
[2017-01-25] MEDS: SENNA + DOCUSATE TAB PO SCH (08:23)
[2017-01-25] MEDS: POLYETHYL.GLYCOL 3350 PACKET 17gm PO SCH (08:23)
[2017-01-25] MEDS: RALOXIFENE 60 MG TABLET PO SCH (08:23)
[2017-01-25] MEDS: SERTRALINE 25 MG TABLET PO SCH (08:23)
[2017-01-25] MEDS: AZITHROMYCIN 250 MG TABLET PO SCH (08:24)
[2017-01-25 08:59] VITALS: RESP 16
[2017-01-25] MEDS: TROLAMINE SALICYLATE 85 GM TUBE TOP PRN ×2 (09:55→22:21)
--- NOTE | 2017-01-25 10:00 | NUR ---
Pt up in room, orellana and day room with walker. Very little verbalization, except brief comments, and pt states knee pain improved.
[2017-01-25] MEDS: FLUTICASONE/SALMETEROL 250/50 DISK INHALER ORAL INH SCH ×2 (10:30→19:10)
--- NOTE | 2017-01-25 11:18 | GENPN ---
[facility] Subjective Date DATE: 01/25/17 TIME: 11:16 Subjective/Severity of Illness Medications Current Medications Medications (Trade) Dose Ordered Sig/Vasile Start Time Stop Time Status Last Admin Dose Admin Donepezil HCl (Aricept) 10 mg HS 01/22/17 21:00 01/24/17 20:32 10 MG Salmeterol Xinafoate/ Fluticasone (Advair 250-50 Diskus) 1 puff RTBID 01/22/17 21:00 01/25/17 10:30 1 PUFF Levothyroxine Sodium (Synthroid) 50 mcg ACB 01/23/17 06:30 01/25/17 06:35 50 MCG Polyethylene Glycol (Miralax) 17 g DAILY 01/23/17 09:00 01/25/17 08:23 17 G Raloxifene HCl (Evista) 60 mg DAILY 01/23/17 09:00 01/25/17 08:23 60 MG Senna/Docusate Sodium (Senna Plus) 1 tab DAILY 01/23/17 09:00 01/25/17 08:23 1 TAB Sertraline HCl (Zoloft) 25 mg DAILY 01/23/17 09:00 01/25/17 08:23 25 MG Ergocalciferol (Vitamin D) 50,000 unit MoFr@09 01/24/17 09:00 01/24/17 08:00 50,000 UNIT Miscellaneous Medication (May use PRN orders) 1 PRN PRN 01/22/17 16:00 Haloperidol (Haldol) 0.5 mg Q6H PRN 01/22/17 16:00 Lorazepam (Ativan) 0.5 mg Q6H PRN 01/22/17 16:00 Lorazepam (Ativan) 0.5 mg Q6H PRN 01/22/17 16:00 Haloperidol Lactate (Haldol 5 Mg/ml Inj) 0.5 mg Q6H PRN 01/22/17 16:00 Al Hydroxide/Mg Hydroxide (Maalox Plus Xs) 30 ml Q6H PRN 01/23/17 02:00 01/23/17 02:10 30 ML Acetaminophen (Tylenol Regular Strength) 1-2 tabs Q5H PRN 01/23/17 04:45 01/25/17 09:03 650 MG Azithromycin (ZITHROMAX 250 mg) 250 mg DAILY 01/23/17 10:00 01/25/17 09:01 DC 01/25/17 08:24 250 MG Albuterol/ Ipratropium (Duoneb) 3 ml Q2H PRN 01/23/17 10:00 Trolamine Salicylate (Aspercreme) 1 applic PRN PRN 01/25/17 09:45 01/25/17 09:55 1 APPLIC Subjective Pt seen and chart examined. Nursing reports pt slept well and has a good appetite. No behaviors noted. On face to face the pt is pleasant but confused. She is only oriented to self. Pt is focused on going home. She states she is only here due to pneumonia. She denies any S/I. Tolerating meds Time of Service: 10:30 Start Time: 10:30 Stop Time: 10:45 Care >50% of this visit spent in counseling/coordination care. Generations Exam Vitals Vital Signs Date Time Temp Pulse Resp B/P Pulse Ox O2 Delivery O2 Flow Rate FiO2 01/25/17 10:30 16 01/25/17 07:37 97.4 67 129/48 98 Nasal Cannula 1.00 Physical examination performed by the hospitalist. Height (Feet): 4 Height (Inches): 11.00 Mental Status Exam Muscle Strength/Tone: Normal Dressing: Casual Grooming: Good Attitude: Guarded Motor Activity: Retardation Eye Contact: Good Speech: Slowed Volume: Normal Rhythm: Appropriate Rhythm Sensory: Alert Orientation: Oriented to person Mood: Neutral Affect: Congruent Rate of Thoughts: Delayed Thought Organization: [place] Associations: Intact Abstract Reasoning: Impaired, concrete Thought Content: Normal Perception/Psychotic: Perception Normal Attention Span/Concentration: Normal Fund of Knowledge: Poor fund of knowledge Memory: Poor-immediate, Poor-recent Suicidal Ideation: None Homicidal Ideation: None Insight: Poor Judgment: Poor Impulse Control: Fair Assessment and Plan (1) 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 Level 2 suicide precautions. Evaluate and stabilize patient 01/24/17 Continue current care 01/25/17 Continue current care Cont. current psych. meds LA SANTOS MD January 25, 2017 11:18
--- NOTE | 2017-01-25 14:30 | NUR ---
Exit Seeking Pt walks to doors near office, did attempt x2 to open and reports she wants to go outside. Explanation given that door are locked for safety. Pt walked to dining room and also pushed on door handle and nurse let her know that it was an emergency exit. Pt accepted explanation without aggression, only frustrated scowl.
[2017-01-25 16:41] VITALS: BP 129/60; PULSE 73; RESP 16; TEMP 98.4; O2SAT 94
--- NOTE | 2017-01-25 18:31 | NUR ---
Shift Summary and Sleep Time No sleep time since awake 0700. Pt reports cheerfully that her friend will be bringing her dog next week to see her. Pt. interacts with other patients briefly, but polite.
[2017-01-25 19:20] VITALS: BP 146/69; PULSE 76; RESP 18; TEMP 98.6; O2SAT 95
[2017-01-25] MEDS: DONEPEZIL 10 MG TABLET PO SCH (20:05)
--- NOTE | 2017-01-25 23:09 | NUR ---
Status Assumed patient care at 191 and assessment completed at 1919. Patient is sitting in dayroom recliner at time of assessment. Cooperative with assessment; affect is flat and she is GINGER to person and month only. She states that her friend will bring her dog in to visit and, "If they don't come, I will cry." She c/o left knee pain but adamantly refuses offered prn medication stating, "No! No! Too much medicine!" Oxygen saturation is stable on 1L - she denies SOA and takes off her oxygen at times. Bibasilar rhonchi; no cough is noted. Cough/deep breathe encouraged - poor effort exerted; she refuses the use of her incentive spirometer despite provided rationale/encouragement. States several times that she wants to go home although no exit-seeking behavior is noted and her demeanor appears clam and relaxed. VS are stable. Ambulates with 4WW and a slow/steady gait. Continent of urine and able to notify staff of needs; independent with cares (set-up assist provided). Readily compliant with HS medications. Anselmo/LORETTA in to visit at 1930 and brings patient's pet poodle. Patient smiles/talks and is in a happy mood during the visit. Upon their departure, her affect becomes flat but no exit-seeking behavior is noted. Denies SI - no morbid comments are noted. No physical or verbal aggression is exhibited. Complains of worsening left knee pain; continues to refuse po prn medication - accepting of Aspercreme topically at 2220.
--- NOTE | 2017-01-26 | NUR ---
PRN Patient complaints of continued chronic pain to left knee and LLE (some to right, as well). Accepting of po Tylenol 650 mg. at 2342. Resting quietly at the current time.
--- NOTE | 2017-01-26 01:18 | NUR ---
Bedtime Patient was in bed at 2044 and asleep by 2114. She sleeps for brief periods (a total of 1 hour) until midnight at which time she falls asleep soundly and remains sleeping at the current time. She was awake all of day shift. Bed alarm is on and side rails are up x2.
--- NOTE | 2017-01-26 01:37 | NUR ---
Chart Check 24 hour chart check completed
[2017-01-26] MEDS: LEVOTHYROXINE 50 MCG TABLET PO SCH (05:51)
--- NOTE | 2017-01-26 05:54 | NUR ---
Summary Patient was GINGER to person only this shift. Flat affect except when she had visitors (DPOA and pet poodle - at which time she exhibits a bright/happy affect). Complains of chronic pain left knee and LLE (later of right LLE, as well) of which Aspercreme was helpful for only a short time - prn Tylenol was effective in helping to relieve pain and allow patient to fall asleep. Uses 1 L O2/NC for most of the shift - denies any SOA. Readily compliant with medications (is hesitant to take prn Tylenol d/t not wanting to take too many medicines). Denies SI/morbid thoughts and no comments of a morbid/suicidal/hopeless nature are noted. She does express a longing to go home although no exit-seeking behaviors are noted. She is not physically or verbally aggressive. This morning she states that the Tylenol was effective and she denies any pain/discomfort currently. Compliant with A.M. medication.
[2017-01-26] MEDS: POLYETHYL.GLYCOL 3350 PACKET 17gm PO SCH (08:10)
[2017-01-26] MEDS: RALOXIFENE 60 MG TABLET PO SCH (08:10)
[2017-01-26] MEDS: SENNA + DOCUSATE TAB PO SCH (08:10)
[2017-01-26] MEDS: SERTRALINE 25 MG TABLET PO SCH (08:10)
[2017-01-26 08:53] VITALS: BP 118/64; PULSE 80; RESP 16; TEMP 98.2; O2SAT 96
--- NOTE | 2017-01-26 08:56 | PNPDOC ---
Subjective Date DATE: 01/26/17 TIME: 08:37 Subjective Ashley was in her room getting ready for the day. She denied any difficulty breathing. Her oxygen was off while she applied lotion to her face, and she stated she will put it back on in a little bit. She denied any abdominal pain or GI complaints. She complains of her legs hurting - nurses have been applying Aspercreme which hasn't been overly helpful but she was able to get some rest after taking Tylenol last night. Objective Vital Signs Vital signs Vital Signs Date Time Temp Pulse Resp B/P Pulse Ox O2 Delivery O2 Flow Rate FiO2 01/25/17 19:20 98.6 76 18 146/69 95 Nasal Cannula 1.00 Height (Feet): 4 Height (Inches): 11.00 Weight (Kilograms): 51.600 General General Appearance: Alert, Orientated x 1 Eyes (Brief) Eyes: FOUND: PERRL, NOT FOUND: scleral icterus ENMT (Brief) ENMT: FOUND: mucosa moist, NOT FOUND: pharnyx erythema Respiratory (Brief) Respiratory: FOUND: wheezes Comments decreased air movement Cardiovascular (Brief) Cardiac: FOUND: regular rate, regular rhythm Abdomen (Brief) Abdominal: FOUND: BS normo active x4, soft Extremities (Brief) Extremity : Side: Bilateral Extremity Finding: NOT FOUND: edema Musculoskeletal (Brief) Musculoskeletal: NOT FOUND: deformity Integumentary (Brief) Integumentary: FOUND: dry, pink, warm Psychiatric (Brief) Psychiatric: FOUND: alert, attentive, normal affect, oriented (x1) Microbiology Microbiology Microbiology Date/Time Source Procedure Growth Status 01/23/17 18:14 Not Provided Urine Culture - Final NO GROWTH AFTER 48 HOURS Complete Assessment & Plan Problems: (1) Pneumonia Status: Acute Assessment & Plan: Rx azithromycin on 01/21/17 (2) Hypernatremia Status: Acute Assessment & Plan: POA (3) Normocytic anemia Status: Acute Assessment & Plan: POA (4) Suicidal ideations Status: Acute (5) Dementia Status: Chronic (6) COPD (chronic obstructive pulmonary disease) Status: Chronic (7) Osteoporosis Status: Chronic (8) Depression Status: Chronic (9) Hypothyroidism Status: Chronic (10) Vitamin D deficiency Status: Chronic (11) Oxygen dependent Status: Chronic (12) Polyosteoarthritis Status: Chronic (13) Hyperlipidemia Plan/Intensity of Service Pneumonia - completed azithro course yesterday. COPD - continue oxygen and supportive care Repeat CBC tomorrow. Because of recent pneumonia, repeat BMP in the morning because of hypernatremia. Hyperlipidemia - check LFTs in am. If OK, may start statin. Psychiatric progress notes reviewed. Code Status Do Not Resuscitate Hospital Course Summary Disclaimer The hospital course summary below is not to be considered part of the above Progress Note. Hospital Course Summary 01/23/17 Agree with admission to [facility]. Chart reviewed - recent pneumonia - finish Azithromycin course (started on ). Interaction with psychotropics potentially causing prolonged QT - EKG shows NSR with QTc of 432 at a rate of 78. CXR reviewed - pneumonia vs aspiration vs chronic disease to lower lobes. COPD, oxygen dependent on 2L. Continue baseline inhalers and will have DuoNeb available PRN. Will consult Speech to evaluate for aspiration and to recommend a diet consistency. Labs reviewed - mild normocytic anemia; mild hypernatremia. Hyperlipidemia noted. TSH 3.30, vitamin B12 and folate are pending. UA - possible UTI with 2+ leuk esterace and 5-10 WBC - send for cx. May need to adjust abx but she has allergies to PCN and sulfa; would prefer to avoid fluoroquinolones given propensity towards acute delirium. UDS was negative. Head CT notable for moderate atrophy. Will continue to follow. Provide safe, supportive environment. DNR status noted. 01/24/17 Continue on 1 liter of oxygen by nasal cannula. Given chronic oxygen dependence. Due to COPD. Continue with azithromycin for treatment of pneumonia. Course will end tomorrow 01/25. Advair scheduled twice a day. Senna plus, and MiraLAX for chronic bowel motivation. Patient may use Tylenol as needed for pain control. Vitamin D twice weekly for supplementation Encourage patient to participate in unit activities and provide a safe environment. 01/26/17 Pneumonia - completed azithro course yesterday. COPD - continue oxygen and supportive care Repeat CBC tomorrow. Because of recent pneumonia, repeat BMP in the morning because of hypernatremia. Hyperlipidemia - check LFTs in am. If OK, may start statin. Psychiatric progress notes reviewed. AMIE EASLEY HOISTING ENGINEER January 26, 2017 08:40
[2017-01-26] MEDS: FLUTICASONE/SALMETEROL 250/50 DISK INHALER ORAL INH SCH ×2 (09:00→19:05)
--- NOTE | 2017-01-26 09:00 | NUR ---
SLEEP 6.75 Hours Pt went to bed at 204 last night and awoke at 0730 this morning. Pt slept a total of 6.75 hours as documented on the 15 minute observation forms.
--- NOTE | 2017-01-26 12:40 | GENPN ---
[facility] Subjective Date DATE: 01/26/17 TIME: 12:38 Subjective/Severity of Illness Medications Current Medications Medications (Trade) Dose Ordered Sig/Vasile Start Time Stop Time Status Last Admin Dose Admin Donepezil HCl (Aricept) 10 mg HS 01/22/17 21:00 01/25/17 20:05 10 MG Salmeterol Xinafoate/ Fluticasone (Advair 250-50 Diskus) 1 puff RTBID 01/22/17 21:00 01/26/17 09:00 1 PUFF Levothyroxine Sodium (Synthroid) 50 mcg ACB 01/23/17 06:30 01/26/17 05:51 50 MCG Polyethylene Glycol (Miralax) 17 g DAILY 01/23/17 09:00 01/26/17 08:10 17 G Raloxifene HCl (Evista) 60 mg DAILY 01/23/17 09:00 01/26/17 08:10 60 MG Senna/Docusate Sodium (Senna Plus) 1 tab DAILY 01/23/17 09:00 01/26/17 08:10 1 TAB Sertraline HCl (Zoloft) 25 mg DAILY 01/23/17 09:00 01/26/17 08:10 25 MG Ergocalciferol (Vitamin D) 50,000 unit MoFr@09 01/24/17 09:00 01/24/17 08:00 50,000 UNIT Miscellaneous Medication (May use PRN orders) 1 PRN PRN 01/22/17 16:00 Haloperidol (Haldol) 0.5 mg Q6H PRN 01/22/17 16:00 Lorazepam (Ativan) 0.5 mg Q6H PRN 01/22/17 16:00 Lorazepam (Ativan) 0.5 mg Q6H PRN 01/22/17 16:00 Haloperidol Lactate (Haldol 5 Mg/ml Inj) 0.5 mg Q6H PRN 01/22/17 16:00 Al Hydroxide/Mg Hydroxide (Maalox Plus Xs) 30 ml Q6H PRN 01/23/17 02:00 01/23/17 02:10 30 ML Acetaminophen (Tylenol Regular Strength) 1-2 tabs Q5H PRN 01/23/17 04:45 01/25/17 23:42 650 MG Azithromycin (ZITHROMAX 250 mg) 250 mg DAILY 01/23/17 10:00 01/25/17 09:01 DC 01/25/17 08:24 250 MG Albuterol/ Ipratropium (Duoneb) 3 ml Q2H PRN 01/23/17 10:00 Trolamine Salicylate (Aspercreme) 1 applic PRN PRN 01/25/17 09:45 01/25/17 22:21 1 APPLIC Subjective Pt seen and chart examined. Nursing reports pt slept well and has a good appetite. No behaviors noted. On face to face the pt is pleasant but confused. She is only oriented to self. She reports her mood is stable and she denies any S/I. SHe is only oriented to self. She states she is dealing with some pain in her knee but it is chronic. Voices no other concerns at this time. Time of Service: 10:30 Start Time: 10:30 Stop Time: 10:45 Care >50% of this visit spent in counseling/coordination care. [facility] Exam Vitals Vital Signs Date Time Temp Pulse Resp B/P Pulse Ox O2 Delivery O2 Flow Rate FiO2 01/26/17 08:53 98.2 80 16 118/64 96 Nasal Cannula 1.00 Physical examination performed by the hospitalist. Height (Feet): 4 Height (Inches): 11.00 Mental Status Exam Muscle Strength/Tone: Normal Dressing: Casual Grooming: Good Attitude: Cooperative Motor Activity: Normal Eye Contact: Good Speech: Normal Volume: Soft Rhythm: Appropriate Rhythm Sensory: Alert Orientation: Oriented to person Mood: Neutral Affect: Congruent Rate of Thoughts: Delayed Thought Organization: Steen Associations: Intact Abstract Reasoning: Impaired, concrete Thought Content: Normal Perception/Psychotic: Perception Normal Attention Span/Concentration: Short Span Fund of Knowledge: Poor fund of knowledge Memory: Poor-immediate, Poor-recent Suicidal Ideation: None Homicidal Ideation: None Insight: Poor Judgment: Poor Impulse Control: Fair Assessment and Plan (1) 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 Level 2 suicide precautions. Evaluate and stabilize patient 01/24/17 Continue current care 01/25/17 Continue current care 01/26/17 Continue current care Cont. current psych. meds LA SANTOS MD January 26, 2017 12:40
--- NOTE | 2017-01-26 13:29 | NUR ---
STATUS Pt was cooperative with assessment, cares and medications. Pt has not had any exit seeking or aggressive behaviors so far this shift. Pt denied morbid thoughts or thoughts of suicide at time of assessment. Pt has had no complaints of pain or discomfort and no PRN medications. Pt is currently in the day room watching a movie with staff present.
--- NOTE | 2017-01-26 17:47 | NUR ---
Summary Pt was cooperative throughout the day. She had a shower and only required set up and supervision. Pt took all medications as prescribed with no resistance. No SI or morbid thoughts were noted throughout the day and patient was happy in affect. Pt had some sarcasm but no verbal or physical aggression. Pt is currently sitting in the day room watching television.
[2017-01-26] MEDS: DONEPEZIL 10 MG TABLET PO SCH (20:45)
[2017-01-26] MEDS: ACETAMINOPHEN 325 MG TABLET PO PRN (20:54)
[2017-01-26 21:00] VITALS: BP 130/67; PULSE 84; RESP 18; TEMP 97.7; O2SAT 92
[2017-01-26] MEDS: TROLAMINE SALICYLATE 85 GM TUBE TOP PRN (22:44)
--- NOTE | 2017-01-26 23:25 | NUR ---
Status/PRN Assumed patient care at 1914 and assessment completed at 2099. Patient sits in the dayroom for a short time this evening but c/o fatigue and wanting to go to bed. GINGER to person and month/day/year - impulsive at times, not waiting for staff assistance. Affect is flat and she does not seem interested in or engage with the other patients. Her gait is steady with the 4WW although she needs some cueing to use walker safely (does not use the brakes when using it to pull herself up). Independent with cares (set-up assist is provided) and readily compliant with medications. VS are stable. Continent of urine and able to notify staff of needs. O2 saturations are stable on O2 at 1 L/NC (she takes it off intermittently). Cough/deep breathe and incentive spirometer encouraged. Moist cough noted - nonproductive. She rests quietly in bed, listening to her iPod. As the evening progresses, she states that her left knee "hurts - some." Tylenol 650 mg. given po at 2053 and patient rests quietly, listening to music with her eyes closed. Later requests Aspercreme; provided at 2243 and she rubs it onto her left knee and right ankle. Denies any SI or morbid thoughts. No negative verbalization is noted. Patient does not exhibit any physical or verbal aggression.
--- NOTE | 2017-01-27 00:02 | NUR ---
Bedtime Patient was in bed by 1999 and asleep by 2329. She was awake all of day shift. Sleeping quietly at the current time; bed alarm is on and side rails are up x2.
--- NOTE | 2017-01-27 00:15 | NUR ---
Chart Check 24 hour chart check completed
[2017-01-27] MEDS: TROLAMINE SALICYLATE 85 GM TUBE TOP PRN (02:29)
[2017-01-27] MEDS: LEVOTHYROXINE 50 MCG TABLET PO SCH (05:30)
--- NOTE | 2017-01-27 06:05 | NUR ---
Summary Patient was ALOx2 this shift. Flat affect and cooperative although she is impulsive at times with poor safety awareness. Aspercreme (used x2) and Tylenol were used to control chronic left knee pain. Compliant with medications and denies any SI or morbid thoughts. She does not exhibit any verbal or physical aggression; some mild irritability is noted with inconveniences such as the bed alarm, belongings being kept in the locked cubby, being asked to wait for staff assistance, etc. - she redirects easily, however. Resting quietly at the current time - without complaints.
[2017-01-27] MEDS: SERTRALINE 25 MG TABLET PO SCH (07:41)
[2017-01-27] MEDS: SENNA + DOCUSATE TAB PO SCH (07:41)
[2017-01-27] MEDS: ERGOCALCIFEROL 50,000 UNIT CAPSULE PO SCH (07:41)
[2017-01-27] MEDS: RALOXIFENE 60 MG TABLET PO SCH (07:41)
[2017-01-27] MEDS: POLYETHYL.GLYCOL 3350 PACKET 17gm PO SCH (07:42)
[2017-01-27 08:02] VITALS: BP 137/62; PULSE 74; RESP 16; TEMP 98.2; O2SAT 93
[2017-01-27 08:56] LABS: BASOPHILS # (AUTO) 0.1 T/MM3 (0-0.2); BASOPHILS % (AUTO) 0.6 % (0-2); EOSINOPHILS # (AUTO) 0.3 T/MM3 (0-0.5); HCT - HEMATOCRIT 40.7 % (36-46); HGB - HEMOGLOBIN 12.8 GM/DL (12-16); IMMATURE GRANULOCYTE # (AUTO) 0.01 T/MM3 (0.00-0.03); IMMATURE GRANULOCYTE % (AUTO) 0.1 % (0.0-0.5); LYMPHOCYTES # (AUTO) 1.6 T/MM3 (1-4.8); LYMPHOCYTES % (AUTO) 20.7 % (23-45); MEAN CORPUSCULAR HGB 30.5 UUG (26-34); MEAN CORPUSCULAR HGB CONC(MCHC 31.4 GM/DL (31-37); MEAN CORPUSCULAR VOLUME 97.1 UM3 (80-100); MEAN PLATELET VOLUME 10.1 UM3 (9.4-12.4); MONOCYTES # (AUTO) 0.4 T/MM3 (0-0.8); MONOCYTES % (AUTO) 5.3 % (0-9.0); NEUTROPHILS #(AUTO)-ABSOLUTE 5.4 T/MM3 (1.8-7.7); NEUTROPHILS % (AUTO) 69.3 % (33-66); RED BLOOD COUNT 4.19 M/MM3 (4.00-5.20); WBC - WHITE BLOOD COUNT 7.7 T/MM3 (4.5-11.0)
[2017-01-27 09:04] LABS: ALBUMIN 4.3 G/DL (3.5-5.0); ALBUMIN/GLOBULIN RATIO 1.2 RATIO (1.1-2.2); ALKALINE PHOSPHATASE 62 U/L (38-126); ALT (SGPT) 32 U/L (9-52); ANION GAP 14 MEQ/L (5-15); AST (SGOT) 28 U/L (14-36); BUN/CREATININE RATIO 24 RATIO (6-26); CALCIUM 9.3 MG/DL (8.4-10.2); CHLORIDE 102 MEQ/L (98-107); CO2 - CARBON DIOXIDE 28 MEQ/L (22-30); CREATININE 0.9 MG/DL (0.7-1.2); GLOMERULAR FILTRATION RATE 60; GLUCOSE 147 MG/DL (65-110); POTASSIUM 4.4 MEQ/L (3.6-5); SODIUM 144 MEQ/L (134-144); TOTAL PROTEIN 7.8 G/DL (6.3-8.2)
[2017-01-27] MEDS: FLUTICASONE/SALMETEROL 250/50 DISK INHALER ORAL INH SCH ×2 (09:10→19:25)
--- NOTE | 2017-01-27 10:38 | NUR ---
status pt alert and oriented x2. pleasant and cooperative. pt woke this am at 0700, slept a total of 7.5hrs. ate 75% of breakfast. complains of pain in bilateral knees. asper cream applied. pt compliant with medication this am. denies any S/I.
--- NOTE | 2017-01-27 11:07 | NUR ---
ACCOUNTING MANAGER CONTROLLER Pt. was present and actively engaged in psychoeducational group facilitated by [facility]. Topic today was on value of pets. Identified ways pets can be helpful and the various jobs they do. Patient was oriented to person and place (did not assess for date as it was provided in group). Pt.'s mood was dysthymic with flat affect. She stated she missed her dog and was ready to go home. Pt. was reminded about importance of working towards her treatment goals. Explained that her attitude, mood and willingness to participate helps reflect her readiness for discharge. Ended group by listening to a variety of old country musicians. Pt. sang along with some of the songs. She did appear more relaxed and mood was slightly improved by end of group AEB increased verbalizations and slight smile on her face.
--- NOTE | 2017-01-27 11:14 | NUR ---
GLOBAL SUPPLY CHAIN VICE PRESIDENT -- TX PLAN CONSENT SW called DP-, Anselmo Duggan, to verify tx plan. DPOA agrees to the tx plan for the pt. Pt called DPOA this morning and told her that she wants out of her and that she wants to . SW educated that pt does want to . She is tired of being here and wants to . Pt does not have SI but does have morbid thoughts. SW spoke with pt to discuss the tx plan and pt believes that because she is [place] the [place]'s taking care of her don't like her and she is then "bad". SW tried to explain that pt is not bad, but she has to be able to use her coping skills if she becomes angry. Pt denies anger outbursts and doesn't remember getting upset with this SW last week. Pt also was verbally aggressive with [facility] staff this morning and pt does not remember that as well. Pt refused to sign the tx plan.
--- NOTE | 2017-01-27 15:18 | NUR ---
EDWIN PEDRAZAM FOR [facility] BED INSTALLER AT [place]. CM PROVIDED CONTACT INFORMATION AND EXPLAINED ROLE.
--- NOTE | 2017-01-27 15:49 | NUR ---
HAND COLLATOR--PM GROUP Pt. was present and actively engaged in group facilitated by [facility]. Pt. had been in irritable mood earlier in the afternoon. She c/o being followed in the hallway by staff and tried to shut her door to keep people out of her room. She did accept the invitation to come join group. Topic was on importance of having fun and laughing as a way to lift spirits. Played with beach ball. Pt. was using her hands and her feet to keep the ball aloft in the air. She was observed to be smiling and laughing at times during the activity.
[2017-01-27 16:00] VITALS: BP 138/65; PULSE 75; RESP 16; TEMP 99; O2SAT 97
--- NOTE | 2017-01-27 18:02 | NUR ---
summary pt has been compliant with all medication this shift. has not slept since waking this am. pt has not made any S/I or morbid statements this shift. gets a little restless but no agitation or anxiety noted. pt pleasant and cooperative. took shower this evening.
[2017-01-27] MEDS: DONEPEZIL 10 MG TABLET PO SCH (19:25)
[2017-01-27 19:34] VITALS: BP 150/67; PULSE 76; RESP 18; TEMP 97.8; O2SAT 96
--- NOTE | 2017-01-27 21:36 | NUR ---
SUMMARY PATIENT HAS BEEN SITTING IN THE DAYROOM MOST OF THE EVENING. SHE HAS BEEN TALKATIVE, COOPERATIVE AND PLEASANT. SHE TOOK ALL HER MEDICATIONS WHOLE AND WITHOUT A PROBLEM. PATIENT DID NOT HAVE ANY AGGRESSIVE BEHAVIORS AND DID NOT EXPRESS ANY S/I OR MORBID THOUGHTS. PATIENT HAS BEEN COOPERATIVE IN KEEPING HER OXYGEN ON AND HAS MADE HER NEEDS KNOWN. PATIENT REMAINS IN THE DAYROOM SITTING WATCHING TV.
[2017-01-27] MEDS: ACETAMINOPHEN 325 MG TABLET PO PRN (22:33)
[2017-01-28] MEDS: LEVOTHYROXINE 50 MCG TABLET PO SCH (05:01)
[2017-01-28] MEDS: TROLAMINE SALICYLATE 85 GM TUBE TOP PRN ×3 (05:14→20:12)
--- NOTE | 2017-01-28 06:23 | NUR ---
summary arrived on shift, patient was asleep in bed. Patient went to sleep at 2300. Patient was up twice during the night for 10-15min to use the restroom. Patient self directed back to bed once done in the restroom. Patient did complain of chronic knee pain this morning, patient denied need for prn tylenol, and did receive prn aspercreme to left knee. No further complaints noted. Once aspercreme applied patient quickly fell back to sleep.
[2017-01-28] MEDS: FLUTICASONE/SALMETEROL 250/50 DISK INHALER ORAL INH SCH ×2 (07:21→19:45)
[2017-01-28 08:00] VITALS: PULSE 82; RESP 18
[2017-01-28 08:04] VITALS: BP 128/60; PULSE 82; RESP 18; TEMP 97.5; O2SAT 91
[2017-01-28] MEDS: POLYETHYL.GLYCOL 3350 PACKET 17gm PO SCH (08:10)
[2017-01-28] MEDS: SERTRALINE 25 MG TABLET PO SCH (08:10)
[2017-01-28] MEDS: SENNA + DOCUSATE TAB PO SCH (08:10)
[2017-01-28] MEDS: RALOXIFENE 60 MG TABLET PO SCH (08:10)
--- NOTE | 2017-01-28 12:23 | NUR ---
sleep note patient went to sleep at 2300 and woke up at 0730, she slept a total of 8:30 hr last night.
--- NOTE | 2017-01-28 15:01 | NUR ---
UTILITY REPAIRER LSW observed pt. standing with her walker near [facility] entrance and encourage pt. to walk down to the day room. Pt. stated she was going home. SW advised pt. that Dr. Mann was considering pt. going home later in the week but she wanted to make sure that her symptoms were improved enough for discharge. Pt. made a gesture with her hand like she was stabbing herself and said, "I might as well kill myself." This SW advised pt. that if she was having thoughts of harming herself, she is not ready for discharge. A short time later pt. was asked if she was suicidal and she admitted that she makes the threat but she has no intent to harm herself. She said, "I say it all the time but I don't mean it." She said she "promised" not to do anything to hurt herself and reached out her hand to shake on it. She said she has her "baby" to live for--her white poodle whom she loves very much and misses. She is just anxious to go back to her home so she can see her dog.
--- NOTE | 2017-01-28 16:33 | GENPN ---
[facility] Subjective Date DATE: 01/27/17 TIME: 18:28 Subjective/Severity of Illness Medications Current Medications Medications (Trade) Dose Ordered Sig/Vasile Start Time Stop Time Status Last Admin Dose Admin Donepezil HCl (Aricept) 10 mg HS 01/22/17 21:00 01/26/17 20:45 10 MG Salmeterol Xinafoate/ Fluticasone (Advair 250-50 Diskus) 1 puff RTBID 01/22/17 21:00 01/27/17 09:10 1 PUFF Levothyroxine Sodium (Synthroid) 50 mcg ACB 01/23/17 06:30 01/27/17 05:30 50 MCG Polyethylene Glycol (Miralax) 17 g DAILY 01/23/17 09:00 01/27/17 07:42 17 G Raloxifene HCl (Evista) 60 mg DAILY 01/23/17 09:00 01/27/17 07:41 60 MG Senna/Docusate Sodium (Senna Plus) 1 tab DAILY 01/23/17 09:00 01/27/17 07:41 1 TAB Sertraline HCl (Zoloft) 25 mg DAILY 01/23/17 09:00 01/27/17 07:41 25 MG Ergocalciferol (Vitamin D) 50,000 unit MoFr@09 01/24/17 09:00 01/27/17 07:41 50,000 UNIT Miscellaneous Medication (May use PRN orders) 1 PRN PRN 01/22/17 16:00 Haloperidol (Haldol) 0.5 mg Q6H PRN 01/22/17 16:00 Lorazepam (Ativan) 0.5 mg Q6H PRN 01/22/17 16:00 Lorazepam (Ativan) 0.5 mg Q6H PRN 01/22/17 16:00 Haloperidol Lactate (Haldol 5 Mg/ml Inj) 0.5 mg Q6H PRN 01/22/17 16:00 Al Hydroxide/Mg Hydroxide (Maalox Plus Xs) 30 ml Q6H PRN 01/23/17 02:00 01/23/17 02:10 30 ML Acetaminophen (Tylenol Regular Strength) 1-2 tabs Q5H PRN 01/23/17 04:45 01/26/17 20:54 650 MG Azithromycin (ZITHROMAX 250 mg) 250 mg DAILY 01/23/17 10:00 01/25/17 09:01 DC 01/25/17 08:24 250 MG Albuterol/ Ipratropium (Duoneb) 3 ml Q2H PRN 01/23/17 10:00 Trolamine Salicylate (Aspercreme) 1 applic PRN PRN 01/25/17 09:45 01/27/17 02:29 1 APPLIC Subjective Patient seen and chart reviewed. Case discussed with treatment team. On interview, patient is in dayroom with peers watching TV. She states she is here because of pneumonia and she feels better now. She would like to go home and move to another facility. She reportedly recently called her DPOA and told her she wants to but has denied being actively suicidal. Patient denies HI or AVH. Patient denies any adverse side effects related to psychotropic medications. Nursing staff report patient's mood has been irritable at times, varying throughout the day and with staff members. Patient slept well overnight. VSS. Patient is eating well. Psychotropic PRNs required in the past 24 hours: none. Time of Service: 10:30 Start Time: 19:00 Stop Time: 19:20 Care >50% of this visit spent in counseling/coordination care. [facility] Exam Vitals Vital Signs Date Time Temp Pulse Resp B/P Pulse Ox O2 Delivery O2 Flow Rate FiO2 01/27/17 16:00 99.0 75 16 138/65 97 Nasal Cannula 1.00 Physical examination performed by the hospitalist. Height (Feet): 4 Height (Inches): 11.00 Mental Status Exam Muscle Strength/Tone: Normal Dressing: Casual Grooming: Fair Attitude: Cooperative Motor Activity: Normal Eye Contact: Good Speech: Normal Volume: Soft Rhythm: Appropriate Rhythm Sensory: Alert Orientation: Oriented to person, Oriented to place Mood: Neutral Affect: Labile Rate of Thoughts: Delayed Thought Organization: Confused (at times) Associations: Intact Abstract Reasoning: Poor abstract reasoning Thought Content: Other (Morbid thoughts expressed to DPOA today) Perception/Psychotic: Perception Normal Attention Span/Concentration: Distractable Language: Other (Dififcult to asess due to language barrier) Fund of Knowledge: Other (Difficult to fully assess, believe decreased from baseline) Memory: Poor-recent Suicidal Ideation: Denies (but endorsed morbid thoughts to DPOA) Homicidal Ideation: Denies Insight: Limited Judgment: Limited Impulse Control: Other (Limited) Laboratory Tests Test 01/27/17 08:33 White Blood Count 7.7T/MM3 Red Blood Count 4.19M/MM3 Hemoglobin 12.8GM/DL Hematocrit 40.7% Mean Corpuscular Volume 97.1UM3 Mean Corpuscular Hemoglobin 30.5UUG Mean Corpuscular Hemoglobin Concent 31.4GM/DL RDW Standard Deviation 40.8FL Platelet Count 232T/MM3 Mean Platelet Volume 10.1UM3 Immature Granulocyte % (Auto) 0.1% Neutrophils (%) (Auto) 69.3% Lymphocytes (%) (Auto) 20.7% Monocytes (%) (Auto) 5.3% Eosinophils (%) (Auto) 4.0% Basophils (%) (Auto) 0.6% Absolute Immature Granulocyte (auto 0.01T/MM3 Absolute Neutrophils (auto) 5.4T/MM3 Absolute Lymphocytes (auto) 1.6T/MM3 Absolute Monocytes (auto) 0.4T/MM3 Absolute Eosinophils (auto) 0.3T/MM3 Absolute Basophils (auto) 0.1T/MM3 Turbidity < 20 Sodium Level 144MEQ/L Potassium Level 4.4MEQ/L Chloride Level 102MEQ/L Carbon Dioxide Level 28MEQ/L Anion Gap 14MEQ/L Blood Urea Nitrogen 22.0MG/DL Creatinine 0.9MG/DL Glomerular Filtration Rate Calc 60 BUN/Creatinine Ratio 24RATIO Glucose Level 147MG/DL Calculated Osmolality 283MOSM/KG Calcium Level 9.3MG/DL Total Bilirubin 0.50MG/DL Icterus Index < 2 Aspartate Amino Transf (AST/SGOT) 28U/L Alanine Aminotransferase (ALT/SGPT) 32U/L Alkaline Phosphatase 62U/L Total Protein 7.8G/DL Albumin 4.3G/DL Globulin 3.5G/DL Albumin/Globulin Ratio 1.2RATIO Chemistry Specimen Hemolysis < 15 Assessment and Plan (1) 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 Level 2 suicide precautions. Evaluate and stabilize patient 01/24/17 Continue current care 01/25/17 Continue current care 01/26/17 Continue current care Cont. current psych. meds ABDULKADIR LOYA MD January 27, 2017 18:28
--- NOTE | 2017-01-28 16:42 | GENPN ---
Generations Subjective Date DATE: 01/28/17 TIME: 16:35 Subjective/Severity of Illness Medications Current Medications Medications (Trade) Dose Ordered Sig/Vasile Start Time Stop Time Status Last Admin Dose Admin Donepezil HCl (Aricept) 10 mg HS 01/22/17 21:00 01/27/17 19:25 10 MG Salmeterol Xinafoate/ Fluticasone (Advair 250-50 Diskus) 1 puff RTBID 01/22/17 21:00 01/28/17 07:21 1 PUFF Levothyroxine Sodium (Synthroid) 50 mcg ACB 01/23/17 06:30 01/28/17 05:01 50 MCG Polyethylene Glycol (Miralax) 17 g DAILY 01/23/17 09:00 01/28/17 08:10 17 G Raloxifene HCl (Evista) 60 mg DAILY 01/23/17 09:00 01/28/17 08:10 60 MG Senna/Docusate Sodium (Senna Plus) 1 tab DAILY 01/23/17 09:00 01/28/17 08:10 1 TAB Sertraline HCl (Zoloft) 25 mg DAILY 01/23/17 09:00 01/28/17 12:32 DC 01/28/17 08:10 25 MG Ergocalciferol (Vitamin D) 50,000 unit MoFr@09 01/24/17 09:00 01/27/17 07:41 50,000 UNIT Miscellaneous Medication (May use PRN orders) 1 PRN PRN 01/22/17 16:00 Haloperidol (Haldol) 0.5 mg Q6H PRN 01/22/17 16:00 Lorazepam (Ativan) 0.5 mg Q6H PRN 01/22/17 16:00 Lorazepam (Ativan) 0.5 mg Q6H PRN 01/22/17 16:00 Haloperidol Lactate (Haldol 5 Mg/ml Inj) 0.5 mg Q6H PRN 01/22/17 16:00 Al Hydroxide/Mg Hydroxide (Maalox Plus Xs) 30 ml Q6H PRN 01/23/17 02:00 01/23/17 02:10 30 ML Acetaminophen (Tylenol Regular Strength) 1-2 tabs Q5H PRN 01/23/17 04:45 01/27/17 22:33 650 MG Azithromycin (ZITHROMAX 250 mg) 250 mg DAILY 01/23/17 10:00 01/25/17 09:01 DC 01/25/17 08:24 250 MG Albuterol/ Ipratropium (Duoneb) 3 ml Q2H PRN 01/23/17 10:00 Trolamine Salicylate (Aspercreme) 1 applic PRN PRN 01/25/17 09:45 01/28/17 09:41 1 APPLIC Sertraline HCl (Zoloft) 50 mg DAILY 01/29/17 09:00 Subjective Patient seen and chart reviewed. Case discussed with treatment team. On interview, patient is intermittently cooperative. As this provider has met this patient on other hospitalizations, I believe this behavior is near her baseline. At times, she states that she doesn't understand Lithuanian well and she communicates clearly at other times. This varies per staff member. Patient was initially reluctatnt to talk to me and told me to stop asking her so many questions When told this was a requirement for discharge, she was more willing. She then states that her mood is okay and denies thoughts of wanting to . She says she feels better now that her pneumonia has been treated. She continues to state that she wants to discharge and move to her new facility. Patient denies SI, HI or AVH. Patient denies any adverse side effects related to psychotropic medications. Nursing staff report patient's mood has been irritable at times, varying throughout the day and with staff members. Patient slept well overnight. VSS. Patient is eating well. Psychotropic PRNs required in the past 24 hours: none. Time of Service: 10:30 Start Time: 12:10 Stop Time: 12:30 Care >50% of this visit spent in counseling/coordination care. [facility] Exam Vitals Vital Signs Date Time Temp Pulse Resp B/P Pulse Ox O2 Delivery O2 Flow Rate FiO2 01/28/17 08:04 97.5 82 18 128/60 91 Room Air 01/28/17 07:22 1.00 Physical examination performed by the hospitalist. Height (Feet): 4 Height (Inches): 11.00 Mental Status Exam Muscle Strength/Tone: Normal Dressing: Casual Grooming: Good Attitude: Manipulative Motor Activity: Normal Eye Contact: Good Speech: Normal Volume: Normal Rhythm: Appropriate Rhythm Sensory: Alert Orientation: Oriented to person, Oriented to place Mood: Neutral Affect: Other (Irritable at times with certain staff) Rate of Thoughts: Appropriate Rate Thought Organization: Organized Associations: Intact Abstract Reasoning: Poor abstract reasoning Thought Content: Normal Perception/Psychotic: Perception Normal Attention Span/Concentration: Distractable Language: Naming Intact Fund of Knowledge: Other (Beleived to be decreased) Memory: Other (Unsure extent of memory problems vs. 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 Level 2 suicide precautions. Evaluate and stabilize patient 01/24/17 Continue current care 01/25/17 Continue current care 01/26/17 Continue current care 01/27/17: Continue current care. 01/28/17: Increase Zoloft to 50mg PO daily; will discuss patient's progress with DPOA. Qualifiers: Qualified Codes: F33.2 - Major depressive disorder, recurrent severe without psychotic features ABDULKADIR LOYA MD January 28, 2017 16:38
[2017-01-28 16:48] VITALS: BP 122/55; PULSE 76; RESP 16; TEMP 98.6; O2SAT 92
--- NOTE | 2017-01-28 18:43 | NUR ---
SHIFT SUMMARY Patient is AO x 2, patient has been cooperative with cares, compliant with medications, patient has been out in the day room most of the day, she only goes to her room for cares, she walked down the [address] way a couple of times, she was exit seeking, trying to open the main door, saying she wanted to go home, that she don't like this place, then when patient was able to redirect to go to the day room while she was walking to the day room she made a suicidal comment " I'll kill my self if i don't go home, I kill my self" hospital social worker heard patient say that comment and spoke to patient about it, patient was able to redirect. Patient did not made any further suicidal comments the rest of the shift. Patient requested to take a shower this evening, this RN assisted her with her shower and patient was cooperative. patient has a steady gait, ambulates with her 4WW, she is able to make needs known, patient has been using her incentive spirometry today with out problems. Patient complain of pain this morning, Tylenol and Aspercreme were offered and patient refused to take Tylenol and only wanted the Aspercreme. Aspercreme was applied. Patient denies needs or concerns at the moment.
[2017-01-28] MEDS: DONEPEZIL 10 MG TABLET PO SCH (20:11)
--- NOTE | 2017-01-28 21:52 | NUR ---
Status Pt using the restroom at start of shift. Pt is cooperative with cares, assessment and medication. PRN Aspercreme applied to BLEs. Pt with 1L per NC on. Pt denied SI or depression. Pt went to bed at 2044 and still awake at this time. Pt had no behaviors or PRNs so far tonight. Bed in low position and locked SR up x 2. Call light in reach but pt does not use and bed alarm on and functioning. Will continue to monitor.
[2017-01-28 22:10] VITALS: BP 137/62; PULSE 73; RESP 15; TEMP 98.5; O2SAT 99
--- NOTE | 2017-01-29 00:10 | NUR ---
Chart Check 24 hour chart check completed
--- NOTE | 2017-01-29 04:47 | NUR ---
Summary Pt went to bed at 2044 and fell asleep at 2214. Pt was up twice to go to the bathroom and was able to go back to sleep. Pt is currently sleeping at this time. O2 1L per NC on, bed in low position, SR up x 2, call light in reach but pt does not use and bed alarm is on and functioning. Pt has not had any behaviors or PRNs and cooperative with cares.
[2017-01-29] MEDS: LEVOTHYROXINE 50 MCG TABLET PO SCH (06:13)
[2017-01-29 07:58] VITALS: BP 154/66; PULSE 75; RESP 20; TEMP 98; O2SAT 94
[2017-01-29] MEDS: FLUTICASONE/SALMETEROL 250/50 DISK INHALER ORAL INH SCH ×2 (07:59→19:23)
[2017-01-29] MEDS: RALOXIFENE 60 MG TABLET PO SCH (08:05)
[2017-01-29] MEDS: SENNA + DOCUSATE TAB PO SCH (08:06)
[2017-01-29] MEDS: POLYETHYL.GLYCOL 3350 PACKET 17gm PO SCH (08:06)
[2017-01-29] MEDS: SERTRALINE 50 MG TABLET PO SCH (08:09)
--- NOTE | 2017-01-29 09:38 | PNPDOC ---
ARIADNA DANIEL V REJI 01/29/17 0938: Subjective Date DATE: 01/29/17 TIME: 09:32 Subjective Ashley is seen today while sitting in the day room. She is on her chronic amount of oxygen at 1 liter. She complains of a "stomach ache" and is tender upon palpation of periumbilical region. Abdomen is soft and nursing staff reports good bowel movements on Saturday 01/27. Objective Vital Signs Vital signs Vital Signs Date Time Temp Pulse Resp B/P Pulse Ox O2 Delivery O2 Flow Rate FiO2 01/29/17 07:58 98.0 75 20 154/66 94 Nasal Cannula 1.00 Height (Feet): 4 Height (Inches): 11.00 Weight (Kilograms): 51.600 General General Appearance: Alert, Orientated x 1, Cooperative, No Acute Distress Eyes (Brief) Eyes: FOUND: EOMI ENMT (Brief) ENMT: FOUND: mucosa moist, normal dentition, NOT FOUND: pharnyx erythema Neck (Brief) Neck: FOUND: midline, NOT FOUND: adenopathy, carotid bruits, tracheal deviation Respiratory (Brief) Respiratory: FOUND: clear all griffin, equal bilaterally, NOT FOUND: wheezes Cardiovascular (Brief) Cardiac: FOUND: regular rate, regular rhythm, NOT FOUND: murmur, pedal edema Capillary Refill: <2 sec Abdomen (Brief) Abdominal: FOUND: BS normo active x4, soft, tender (periumbilical ), NOT FOUND : distended Lymphatic (Brief) Lymphatic: NOT FOUND: adenopathy Musculoskeletal (Brief) Musculoskeletal: NOT FOUND: tenderness Integumentary (Brief) Integumentary: FOUND: dry, pink, warm Neurologic (Brief) Neurological: FOUND: cranial 2-12 intact Psychiatric (Brief) Psychiatric: FOUND: alert, attentive, normal affect Assessment & Plan Problems: (1) Pneumonia Status: Acute Assessment & Plan: Rx azithromycin on 01/21/17 (2) Hypernatremia Status: Acute Assessment & Plan: POA (3) Normocytic anemia Status: Acute Assessment & Plan: POA (4) Suicidal ideations Status: Acute (5) Dementia Status: Chronic (6) COPD (chronic obstructive pulmonary disease) Status: Chronic (7) Osteoporosis Status: Chronic (8) Depression Status: Chronic (9) Hypothyroidism Status: Chronic (10) Vitamin D deficiency Status: Chronic (11) Oxygen dependent Status: Chronic (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 Will continue to monitor and obtain serial abdominal exams. Asked nursing staff to monitor for changes. Last bowel movement was 01/27. COPD - continue on chronic oxygen at 1 liter. Psychiatric progress notes reviewed- Zoloft increased by Dr Mann Encourage participation in unit activity and provide a safe environment Code Status Do Not Resuscitate Hospital Course Summary Disclaimer The hospital course summary below is not to be considered part of the above Progress Note. Hospital Course Summary 01/23/17 Agree with admission to [facility]. Chart reviewed - recent pneumonia - finish Azithromycin course (started on ). Interaction with psychotropics potentially causing prolonged QT - EKG shows NSR with QTc of 432 at a rate of 78. CXR reviewed - pneumonia vs aspiration vs chronic disease to lower lobes. COPD, oxygen dependent on 2L. Continue baseline inhalers and will have DuoNeb available PRN. Will consult Speech to evaluate for aspiration and to recommend a diet consistency. Labs reviewed - mild normocytic anemia; mild hypernatremia. Hyperlipidemia noted. TSH 3.30, vitamin B12 and folate are pending. UA - possible UTI with 2+ leuk esterace and 5-10 WBC - send for cx. May need to adjust abx but she has allergies to PCN and sulfa; would prefer to avoid fluoroquinolones given propensity towards acute delirium. UDS was negative. Head CT notable for moderate atrophy. Will continue to follow. Provide safe, supportive environment. DNR status noted. 01/24/17 Continue on 1 liter of oxygen by nasal cannula. Given chronic oxygen dependence. Due to COPD. Continue with azithromycin for treatment of pneumonia. Course will end tomorrow 01/25. Advair scheduled twice a day. Senna plus, and MiraLAX for chronic bowel motivation. Patient may use Tylenol as needed for pain control. Vitamin D twice weekly for supplementation Encourage patient to participate in unit activities and provide a safe environment. 01/26/17 Pneumonia - completed azithro course yesterday. COPD - continue oxygen and supportive care Repeat CBC tomorrow. Because of recent pneumonia, repeat BMP in the morning because of hypernatremia. Hyperlipidemia - check LFTs in am. If OK, may start statin. Psychiatric progress notes reviewed. 01/29/17 Abdomen is soft however tender. Will continue to monitor and obtain serial abdominal exams. Asked nursing staff to monitor for changes. Last bowel movement was 01/27. COPD - continue on chronic oxygen at 1 liter. Psychiatric progress notes reviewed- Zoloft increased by Dr Mann Encourage participation in unit activity and provide a safe environment LETICIA MARTIN MD 01/29/17 1930: Assessment & Plan Assessment 01/29/2017-I reviewed this chart, the patient history, and the ASSEMBLER FITTER's/PA's documented findings as above. We discussed and formulated the assessment and plan as above with the additions below.-Dr. Martin The patient is seen after supper this evening. She states she had a cough but cough drops or helping. She states that she was admitted to the hospital with pneumonia, but she is feeling much better now. She states she had a stomach ache this morning but that it is gone now. She states that she takes a cream for knee pain at night and it works well and helps her sleep. She denies any other complaints. On exam she is alert and in no acute distress. She is very pleasant. Chest reveals some mild crackles in the bases. Cardiovascular reveals a regular rate and rhythm. Abdomen is soft and nontender. Extremities are free of edema. Overall, the patient appears to be stable medically. We'll continue to monitor closely. Regarding B-12 of 334, will start oral vitamin B-12. ARIADNA DANIEL APRN January 29, 2017 09:38 LETICIA MARTIN MD January 29, 2017 19:30
[2017-01-29] MEDS: MAG-AL + SIM XS 30 ML UDC PO PRN (09:51)
--- NOTE | 2017-01-29 10:20 | NUR ---
EDWIN LOYA IS ANTICIPATING D/C BACK TO [place] ON FRIDAY. EDWIN SPOKE WITH SARY FROM [place] AND SHE WILL CONTACT CM WITH [employer] DEAL[employer] TIME. THE FACILITY LidaES MARTIN BARONE APRN FOR MENTAL HEALTH FOLLOW UP HOWEVER PT USES A DR IN [place] AND THE FACILITY WILL TRANSPORT PT TO VISITS. CM LEFT FOR DPALYSSA TAVERAS WITH ANTICIPATED D/C DATE. CM ENCOURAGED DPOA TO CONTACT IF NEEDS ARISE.
--- NOTE | 2017-01-29 10:47 | GENPN ---
Generations Subjective Date DATE: 01/29/17 TIME: 08:18 Subjective/Severity of Illness Medications Current Medications Medications (Trade) Dose Ordered Sig/Vasile Start Time Stop Time Status Last Admin Dose Admin Donepezil HCl (Aricept) 10 mg HS 01/22/17 21:00 01/28/17 20:11 10 MG Salmeterol Xinafoate/ Fluticasone (Advair 250-50 Diskus) 1 puff RTBID 01/22/17 21:00 01/29/17 07:59 1 PUFF Levothyroxine Sodium (Synthroid) 50 mcg ACB 01/23/17 06:30 01/29/17 06:13 50 MCG Polyethylene Glycol (Miralax) 17 g DAILY 01/23/17 09:00 01/28/17 08:10 17 G Raloxifene HCl (Evista) 60 mg DAILY 01/23/17 09:00 01/29/17 08:05 60 MG Senna/Docusate Sodium (Senna Plus) 1 tab DAILY 01/23/17 09:00 01/29/17 08:06 1 TAB Sertraline HCl (Zoloft) 25 mg DAILY 01/23/17 09:00 01/28/17 12:32 DC 01/28/17 08:10 25 MG Ergocalciferol (Vitamin D) 50,000 unit MoFr@09 01/24/17 09:00 01/27/17 07:41 50,000 UNIT Miscellaneous Medication (May use PRN orders) 1 PRN PRN 01/22/17 16:00 Haloperidol (Haldol) 0.5 mg Q6H PRN 01/22/17 16:00 Lorazepam (Ativan) 0.5 mg Q6H PRN 01/22/17 16:00 Lorazepam (Ativan) 0.5 mg Q6H PRN 01/22/17 16:00 Haloperidol Lactate (Haldol 5 Mg/ml Inj) 0.5 mg Q6H PRN 01/22/17 16:00 Al Hydroxide/Mg Hydroxide (Maalox Plus Xs) 30 ml Q6H PRN 01/23/17 02:00 01/23/17 02:10 30 ML Acetaminophen (Tylenol Regular Strength) 1-2 tabs Q5H PRN 01/23/17 04:45 01/27/17 22:33 650 MG Azithromycin (ZITHROMAX 250 mg) 250 mg DAILY 01/23/17 10:00 01/25/17 09:01 DC 01/25/17 08:24 250 MG Albuterol/ Ipratropium (Duoneb) 3 ml Q2H PRN 01/23/17 10:00 01/28/17 23:29 3 ML Trolamine Salicylate (Aspercreme) 1 applic PRN PRN 01/25/17 09:45 01/28/17 20:12 1 APPLIC Sertraline HCl (Zoloft) 50 mg DAILY 01/29/17 09:00 01/29/17 08:09 50 MG Subjective Patient seen and chart reviewed. Case discussed with treatment team. On interview, patient states that she feels better than upon admission and wants to go home. She did get upset with staff and make a suicidal comment yesterday but was redirectable, and said she doesn't really mean these things - - she just says them. As this provider has met this patient on other hospitalizations, I believe much of this behavior is near her baseline. At times , she states that she doesn't understand Sinhala well and she communicates clearly at other times. This varies per staff member. She then states that her mood is okay and denies thoughts of wanting to . She says she feels better now that her pneumonia has been treated. She continues to state that she wants to discharge and move to her new facility. Patient denies SI, HI or AVH. Patient complains of mild abdominal pain this morning - may be related to increase in Zoloft; we agreed to monitor as it will likely resolve if this is the cause. Per review of outpatient records, patient was previously taking Depakote 125mg PO BID for anger issues. I contacted patient's LORETTA Briones in regards to patient 's progress. She came to visit yesterday and brought patient's dog -- she expressed concern that patient hit the dog 3 times during the visit and appeared angry, and then became jealous when the dog did not want to sit with her anymore. We agreed to restart the Depakote as she was under the impression patient had been continuing to take it as an outpatient (did not appear to be upon admission). Nursing staff report patient's mood has been irritable at times, varying throughout the day and with staff members. Patient slept well overnight. VSS. Patient is eating well. Psychotropic PRNs required in the past 24 hours: none. Time of Service: 10:30 Start Time: 09:00 Stop Time: 09:20 Care >50% of this visit spent in counseling/coordination care. Generations Exam Vitals Vital Signs Date Time Temp Pulse Resp B/P Pulse Ox O2 Delivery O2 Flow Rate FiO2 01/29/17 07:58 98.0 75 20 154/66 94 Nasal Cannula 1.00 Physical examination performed by the hospitalist. Height (Feet): 4 Height (Inches): 11.00 Mental Status Exam Muscle Strength/Tone: Normal Dressing: Casual Grooming: Good Attitude: Manipulative Motor Activity: Normal Eye Contact: Fair Speech: Normal Volume: Normal Rhythm: Appropriate Rhythm Sensory: Alert Orientation: Oriented to person, Oriented to place Mood: Neutral Affect: Labile Rate of Thoughts: Delayed Thought Organization: Organized Associations: Intact Abstract Reasoning: Poor abstract reasoning Thought Content: Other (Perseveration on discharge) Perception/Psychotic: Perception Normal Attention Span/Concentration: Normal Language: Naming Intact Fund of Knowledge: Other (Unable to fully assess due to language barrier; believed to be decreased from baseline) Memory: Other (Unable to fully assess due to limited cooperation and language barrier - believed to have some deficits) Suicidal Ideation: Denies Homicidal Ideation: Denies Insight: Limited Judgment: Limited Assessment and Plan (1) 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 Level 2 suicide precautions. Evaluate and stabilize patient 01/24/17 Continue current care 01/25/17 Continue current care 01/26/17 Continue current care 01/27/17: Continue current care. 01/28/17: Increase Zoloft to 50mg PO daily; will discuss patient's progress with DPOA. 01/29/17: Will restart Depakote 125mg PO BID to target anger; DPOA in agreement after discussion of risks/benefits and believes patient has tolerated this medication well in the past. Qualifiers: Qualified Codes: F33.2 - Major depressive disorder, recurrent severe without psychotic features ABDULKADIR LOYA MD January 29, 2017 08:18
--- NOTE | 2017-01-29 11:30 | NUR ---
EMPLOYMENT COACH--AM GROUP Pt. was present and actively engaged in psychoeducational group facilitated by [facility]. Topic included favorite things to do on a rainy day. Pt. was able to identify 3-4 activities. Talked about [place] weather and the beauty of thunderstorms. Pt. was attentive and joined in the discussion as others contributed their thoughts. Pt. is oriented to person and place (did not assess for date). Another patient is discharging today and pt. has repeatedly mentioned that she wants to go home. Played [employer] game to stimulate social interaction and mood improvement. Pt. was active participant, guessing many answers correctly. Ended group with listening to variety of music tunes. Patient demonstrated enjoyment of listening to the music by smiling and standing up and dancing along to the songs.
--- NOTE | 2017-01-29 14:49 | NUR ---
INSPECTOR AIR CARRIER--GROUP TIME Pt. participated in reminiscing time with [facility]. She talked about the educational system in [place]. 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 She took Chinese throughout her education. She went to school for 8 hours - and 1/2 day on Friday. Pt. did play a dice game with SW and AF. She mentioned she loves playing Mohawk form of poker. She also played memory game with this SW. Pt. demonstrated pleasant relaxed mood throughout the activity.
[2017-01-29 16:05] VITALS: BP 150/64; PULSE 74; RESP 20; TEMP 98.8; O2SAT 97
[2017-01-29] MEDS ORDERED: MENTHOL COUGH DROPS (RICOLA) MM PRN (18:00)
--- NOTE | 2017-01-29 18:28 | NUR ---
Shift Summary Patient is awake and dressing herself at the start of this shift at 0715. She is independent in her cares requiring set-up help but only as hygiene products are locked per unit protocol. She ambulates independently with 4WW, uses O2 appropriately removing tubing when she gets up to ambulate. Appetite is fair, eating 50% this morning and evening but only bites at lunch. All medications were given whole and taken by patient without argument or incident. She walks the hallway a couple of times this afternoon but did not try to exit the doors. Twice she got upset with staff - once this morning about staff not being able to find something in her lock-up and again this afternoon when she could not find the mate to a sock. Both times staff were able to meet her needs/request. She is active in groups and activities, actively participates in game shows on television. She has not made any suicidal comments or gestures this shift.
[2017-01-29] MEDS: DONEPEZIL 10 MG TABLET PO SCH (19:22)
[2017-01-29] MEDS: DIVALPROEX SPRINKLE 125 MG CAPSULE PO SCH (19:22)
[2017-01-29] MEDS: TROLAMINE SALICYLATE 85 GM TUBE TOP PRN (19:25)
[2017-01-29 19:37] VITALS: BP 138/58; PULSE 76; RESP 18; TEMP 98.8; O2SAT 94
--- NOTE | 2017-01-30 00:36 | NUR ---
Status Pt was in room at start of this shift. She is a/o to self, up with assist x 1 and walker. Pt was cooperative with doctor, nursing assessments and VS. Pt with O2 at 1L per NC. Pt also cooperative with evening medication. Pt changed for bed only needing help getting her supplies for cares. Pt spent the rest of the evening in the DR watching tv and visiting with staff and other pts. Pt has dry non productive cough. She has happy affect, denies SI and no suicidal comments heard or reported. Pt had no behaviors. Pt did request Aspercreme be applied to BLEs. Pt went to bed at 2100, up x 1 to bathroom and used her call light appropriately. She is currently asleep. Bed in low position, SR up x 2, call light in reach, bed alarm on and functioning.
--- NOTE | 2017-01-30 06:17 | NUR ---
Chart Check 24 hour chart check completed
--- NOTE | 2017-01-30 06:18 | NUR ---
Summary Pt has slept all night except an 1HR and 45 minutes when up to the bathroom and falling back to sleep. Pt has been cooperative with cares and has had no PRNs, no behaviors and pt has been using call light to make needs known instead of getting OOB without assistance. Pt does think that she is going home today and RN has tried to redirect pt several times that possibly Friday but she insists. Pt is currently sleeping. Bed in low position, SR up x 2, call light in reach and used appropriately and bed alarm is on and functioning. Will continue to monitor.
[2017-01-30] MEDS: FLUTICASONE/SALMETEROL 250/50 DISK INHALER ORAL INH SCH ×2 (07:17→20:32)
[2017-01-30 08:00] VITALS: BP 135/67; PULSE 76; RESP 16; RESP 18; TEMP 97.2; O2SAT 95
[2017-01-30] MEDS: SERTRALINE 50 MG TABLET PO SCH (08:16)
[2017-01-30] MEDS: SENNA + DOCUSATE TAB PO SCH (08:16)
[2017-01-30] MEDS: RALOXIFENE 60 MG TABLET PO SCH (08:16)
[2017-01-30] MEDS: LEVOTHYROXINE 50 MCG TABLET PO SCH (08:16)
[2017-01-30] MEDS: DIVALPROEX SPRINKLE 125 MG CAPSULE PO SCH ×2 (08:17→19:37)
[2017-01-30] MEDS: POLYETHYL.GLYCOL 3350 PACKET 17gm PO SCH (08:17)
[2017-01-30] MEDS: CYANOCOBALAMIN (B-12) 500mcg TABLET PO SCH (08:21)
[2017-01-30 09:26] VITALS: BP 135/67; PULSE 76; RESP 16; TEMP 97.2; O2SAT 95
--- NOTE | 2017-01-30 10:29 | NUR ---
AIRCRAFT ENGINE TECHNICIAN--AM GROUP Pt. was present and actively engaged in psychoeducational group facilitated by [facility]. Talked about importance of gratitude and how focusing on positives in their lives helps improve mood and attitude. Pt. had scowl on her face and shook her head "no" when asked to identify one thing she is grateful for. This SW reminded her about her dog and how much love he shows to her. Pt. smiled and agreed that her dog brings her lex. Played [place] game to help stimulate neurocognitive functioning and social interactions. Pt. attempted to answer every question asked. Her mood was improved AEB increased smiling and laughter with staff and other patients during the group.
--- NOTE | 2017-01-30 11:40 | PDOCECFAO ---
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 SNF inpatient care is necessary for the following reasons Not Applicable LISA LOYA MD January 30, 2017 11:40
[2017-01-30] MEDS ORDERED: SERT50TA12 PO (11:41)
[2017-01-30] MEDS ORDERED: DIVA125C PO (11:41)
--- NOTE | 2017-01-30 13:10 | NUR ---
status pt alert and oriented x2. woke this am at 0800 slept well through the night. compliant with medications this am. ate 100% of breakfast and 25% of lunch. allows staff to assist with hygiene cares. Addendum: 01/30/17 at 1313 by COLLIN RIVERA RN previous note written on wrong patient.
--- NOTE | 2017-01-30 14:04 | NUR ---
CM DR LOYA IS PLANNING TO D/C PT BACK TO [place] TOMORROW. EDWIN SPOKE WITH SARY FROM [place] AND THEY ARE PLANNING TO TRANSPORT PT TOMORROW AT 1:00PM. 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 LORETTA AWARE TO CONTACT CM IF NEEDS ARISE.
--- NOTE | 2017-01-30 14:08 | GENPN ---
[facility] Subjective Date DATE: 01/30/17 TIME: 10:32 Subjective/Severity of Illness Medications Current Medications Medications (Trade) Dose Ordered Sig/Vasile Start Time Stop Time Status Last Admin Dose Admin Donepezil HCl (Aricept) 10 mg HS 01/22/17 21:00 01/29/17 19:22 10 MG Salmeterol Xinafoate/ Fluticasone (Advair 250-50 Diskus) 1 puff RTBID 01/22/17 21:00 01/30/17 07:17 1 PUFF Levothyroxine Sodium (Synthroid) 50 mcg ACB 01/23/17 06:30 01/30/17 08:16 50 MCG Polyethylene Glycol (Miralax) 17 g DAILY 01/23/17 09:00 01/30/17 08:17 17 G Raloxifene HCl (Evista) 60 mg DAILY 01/23/17 09:00 01/30/17 08:16 60 MG Senna/Docusate Sodium (Senna Plus) 1 tab DAILY 01/23/17 09:00 01/30/17 08:16 1 TAB Sertraline HCl (Zoloft) 25 mg DAILY 01/23/17 09:00 01/28/17 12:32 DC 01/28/17 08:10 25 MG Ergocalciferol (Vitamin D) 50,000 unit MoFr@09 01/24/17 09:00 01/27/17 07:41 50,000 UNIT Miscellaneous Medication (May use PRN orders) 1 PRN PRN 01/22/17 16:00 Haloperidol (Haldol) 0.5 mg Q6H PRN 01/22/17 16:00 Lorazepam (Ativan) 0.5 mg Q6H PRN 01/22/17 16:00 Lorazepam (Ativan) 0.5 mg Q6H PRN 01/22/17 16:00 Haloperidol Lactate (Haldol 5 Mg/ml Inj) 0.5 mg Q6H PRN 01/22/17 16:00 Al Hydroxide/Mg Hydroxide (Maalox Plus Xs) 30 ml Q6H PRN 01/23/17 02:00 01/29/17 09:51 30 ML Acetaminophen (Tylenol Regular Strength) 1-2 tabs Q5H PRN 01/23/17 04:45 01/27/17 22:33 650 MG Azithromycin (ZITHROMAX 250 mg) 250 mg DAILY 01/23/17 10:00 01/25/17 09:01 DC 01/25/17 08:24 250 MG Albuterol/ Ipratropium (Duoneb) 3 ml Q2H PRN 01/23/17 10:00 01/28/17 23:29 3 ML Trolamine Salicylate (Aspercreme) 1 applic PRN PRN 01/25/17 09:45 01/29/17 19:25 1 APPLIC Sertraline HCl (Zoloft) 50 mg DAILY 01/29/17 09:00 01/30/17 08:16 50 MG Divalproex Sodium (Depakote Sprinkle) 125 mg BID 01/29/17 21:00 01/30/17 08:17 125 MG Menthol (Ricola Sf) 1 nimisha PRN PRN 01/29/17 18:00 01/29/17 18:04 1 NIMISHA Cyanocobalamin (Vit. B-12) 1,000 mcg DAILY 01/30/17 09:00 01/30/17 08:21 1,000 MCG Subjective Patient seen and chart reviewed. Case discussed with treatment team. On interview, patient states that she feels better than upon admission and still wants to go home. She is tolerating Depakote well and states her mood is good. She has been cooperative with staff as she would like to discharge. As this provider has met this patient on other hospitalizations, I believe much of this behavior is near her baseline. At times, she states that she doesn't understand Kinyarwanda well and she communicates clearly at other times. This varies per staff member. She says she feels better now that her pneumonia has been treated. Patient denies SI, HI or AVH. Patient slept well overnight. VSS. Patient is eating well. Psychotropic PRNs required in the past 24 hours: none. Time of Service: 10:30 Start Time: 10:20 Stop Time: 10:40 Care >50% of this visit spent in counseling/coordination care. [facility] Exam Vitals Vital Signs Date Time Temp Pulse Resp B/P Pulse Ox O2 Delivery O2 Flow Rate FiO2 01/30/17 09:26 97.2 76 16 135/67 95 Nasal Cannula 1.00 Physical examination performed by the hospitalist. Height (Feet): 4 Height (Inches): 11.00 Mental Status Exam Muscle Strength/Tone: Normal Dressing: Casual Grooming: Good Attitude: Cooperative Motor Activity: Normal Eye Contact: Good Speech: Normal Volume: Normal Rhythm: Appropriate Rhythm Sensory: Alert Orientation: Oriented to person, Oriented to place Mood: Neutral Affect: Stable Rate of Thoughts: Appropriate Rate Thought Organization: Organized Associations: Intact Abstract Reasoning: Poor abstract reasoning Thought Content: Normal Perception/Psychotic: Perception Normal Attention Span/Concentration: Distractable Language: Naming Intact Fund of Knowledge: Alejo aware current events Memory: Grossly Intact Suicidal Ideation: Denies Homicidal Ideation: Denies Insight: Limited Judgment: Limited Impulse Control: Fair Assessment and Plan (1) 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 Level 2 suicide precautions. Evaluate and stabilize patient 01/24/17 Continue current care 01/25/17 Continue current care 01/26/17 Continue current care 01/27/17: Continue current care. 01/28/17: Increase Zoloft to 50mg PO daily; will discuss patient's progress with DPOA. 01/29/17: Will restart Depakote 125mg PO BID to target anger; DPOA in agreement after discussion of risks/benefits and believes patient has tolerated this medication well in the past. 01/30/17: Patient doing well overall. Continue current care, finalize discharge arrangements with DPOA, facility. Qualifiers: Qualified Codes: F33.2 - Major depressive disorder, recurrent severe without psychotic features ABDULKADIR LOYA MD January 30, 2017 10:32
--- NOTE | 2017-01-30 15:29 | NUR ---
shift summary Patient has been cooperative with cares, compliant with medications, patient has been walking down the [address] way a couple of times, she is able to make needs known, no aggressive behaviors, patient walked by her room and said, " shit you can't even lock the door." then patient went into the group room an closed the door. Patient participated in group activities today, she has been out in the day room most of the morning. Addendum: 01/30/17 at 5568 by BARBARA BOX RN this note is a mid shift status not a summary
--- NOTE | 2017-01-30 15:32 | NUR ---
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 was active participant in PM psychoeducational group facilitated by [facility]. Topic was on the need to have control. Talked with patients about this need begins as an infant and lasts our entire life. Asked patients questions about whether or not they felt they had control of various items. Pt. answered some of the questions and showed limited insight. When asked if she felt she had control over her feelings, she shrugged her shoulders. Pt. was alert, Ox2, with euthymic mood. She c/o of wanting to go back to her group home where she states she will stay for a short time before moving back to her old facility. Ended group by listening to a variety of tunes. Pt. danced in her chair while listening to Chinese tunes. Pt's mood improved by end of group. She was observed smiling and joking around with staff and other patients.
[2017-01-30 16:47] VITALS: BP 144/62; PULSE 75; RESP 18; TEMP 98.6; O2SAT 97
--- NOTE | 2017-01-30 17:31 | NUR ---
SHIFT SUMMARY Patient woke up at 0745 this morning, 9Hr and 45 minutes last night, she has been out in the day room, dining room most of the shift, she only went to her room for cares, she walked down the [address] way a couple of times. Patient was compliant with her medications today. Flat affect, smiles at times Patient participated in activities today, she complain of pain on her left knee this afternoon, Aspercreme was applied, patient did not complain of pain after pain after that. No other PRN medications were given. NO SI comments were noted today. Patient walked down the [address] way today and did not like that staff was walking near by her, she tried to run to get away from staff, Patient was walking down the [address] way, she turned and looked at her room and said " shit you can't even lock the door. " then she went into the group room and closed the door. Patient is able to make needs known, she has a steady gait, Patient denies needs or concerns at the moment.
[2017-01-30] MEDS: DONEPEZIL 10 MG TABLET PO SCH (19:37)
[2017-01-30] MEDS: TROLAMINE SALICYLATE 85 GM TUBE TOP PRN (19:39)
[2017-01-30 20:07] VITALS: BP 127/83; PULSE 76; RESP 18; TEMP 98.7; O2SAT 99
--- NOTE | 2017-01-30 21:15 | NUR ---
Status Pt was sitting in DR watching tv at start of shift. She has on 1L O2 per NC, she is up with SBA and walker. Pt denies SI, when asked if she had any pain she stated she wanted cream for her legs. Pt has been cooperative with VS, meds and assessment. She has not had any behaviors, when ambulating she would watch if staff was following her but pt never reacted to staff. Pt went to bed at 2044 falling asleep at 2100. No behaviors or s/s of increased depression or SI. Will continue to monitor. Bed is locked, in low position, SR up x 2, pt reminded to use call light, bed alarm is on and functioning.
--- NOTE | 2017-01-30 23:06 | NUR ---
Chart Check 24 hour chart check completed
[2017-01-31] MEDS: LEVOTHYROXINE 50 MCG TABLET PO SCH (05:39)
--- NOTE | 2017-01-31 05:50 | NUR ---
Summary/Sleep Pt slept well through the night. She was in bed at 2044 and fell asleep at 2099 and slept through the night except getting up to use the bathroom twice. Pt did just use the bathroom and is currently resting quietly in bed. Bed is in low position, locked, call light in reach and pt uses appropriately, bed alarm is on and functioning. Will continue to monitor. Pt has had no PRNs, behaviors or comments of self harm.
[2017-01-31] MEDS: FLUTICASONE/SALMETEROL 250/50 DISK INHALER ORAL INH SCH (07:47)
[2017-01-31] MEDS: DIVALPROEX SPRINKLE 125 MG CAPSULE PO SCH (07:51)
[2017-01-31] MEDS: RALOXIFENE 60 MG TABLET PO SCH (07:51)
[2017-01-31] MEDS: SENNA + DOCUSATE TAB PO SCH (07:52)
[2017-01-31] MEDS: POLYETHYL.GLYCOL 3350 PACKET 17gm PO SCH (07:52)
[2017-01-31] MEDS: CYANOCOBALAMIN (B-12) 500mcg TABLET PO SCH (07:52)
[2017-01-31] MEDS: ERGOCALCIFEROL 50,000 UNIT CAPSULE PO SCH (07:52)
[2017-01-31] MEDS: SERTRALINE 50 MG TABLET PO SCH (07:53)
[2017-01-31 08:05] VITALS: BP 138/65; PULSE 73; RESP 15; TEMP 98; O2SAT 95
[2017-01-31] MEDS ORDERED: CYAN500T2 PO (10:03)
--- NOTE | 2017-01-31 10:09 | NUR ---
CUPOLA MELTER HELPER -- SAFETY PLAN SW provided pt with safety plan for D/C today. Plan described techniques pt could utilize if she felt as though she was having SI. Pt signed. Copy given to pt and original placed in pt chart.
[2017-01-31] MEDS: TROLAMINE SALICYLATE 85 GM TUBE TOP PRN (10:19)
--- NOTE | 2017-01-31 13:19 | NUR ---
Discharge Patient leaves the unit at 1305 via wheelchair to [facility]. She transports via facility vehicle equipped with oxygen. Today she has been very anxious about going home; once trying to get out the back doors so she could wait for her ride. She assisted nursing staff in packing and sorting through her belongings. Aspercreme and Advair inhaler sent. Report called to DALIA Monaco ([phone]); unit contact information given along with plans for follow-up care with PCP and MH professional as outlined in PHS. No pending labs on discharge.
== END 2017-01-31 13:05 | DRG 884 ==
LOC: ED 13:18 → EDBD 13:18 → GEN 15:17
PROVIDERS: ADMIT Psychiatry & Neurology Psychiatry; ATTEND Psychiatry & Neurology Psychiatry
DX: F03.91 Unspecified dementia, unspecified severity, with behavioral disturbance (principal); J18.9 Pneumonia, unspecified organism; F33.2 Major depressive disorder, recurrent severe without psychotic features; E87.0 Hyperosmolality and hypernatremia; R45.851 Suicidal ideations; J44.9 Chronic obstructive pulmonary disease, unspecified; Z66 Do not resuscitate; I67.9 Cerebrovascular disease, unspecified; E78.5 Hyperlipidemia, unspecified; M81.0 Age-related osteoporosis without current pathological fracture; E03.9 Hypothyroidism, unspecified; M15.0 Primary generalized (osteo)arthritis; E55.9 Vitamin D deficiency, unspecified; Z99.81 Dependence on supplemental oxygen
CPT/HCPCS: 36415; 80048; 80053; 80061; 80306; 80307; 81001; 82607; 82746; 83036; 84443; 85025; 87086; 93005; 94640